=== PATIENT | female | born 1935 | race Caucasian/White ===

== ENCOUNTER 2019-04-12 19:10 | Observation (INO) | payer MEDICARE, SELFPAY ==
[2019-04-12] VITALS (9 sets, daily range): BP systolic 98–156; BP diastolic 50–108; PULSE 60–120; RESP 12–20; TEMP 36.4–36.7; O2SAT 96–98; BMI 31.8
--- NOTE | ~2019-04-12 | XR_ITS ---
EXAMINATION: XR chest 2V EXAM DATE: 04/12/2019 19:58 INDICATION: Weakness, heart palpitations. TECHNIQUE: Frontal and lateral projections of the chest obtained and reviewed. Comparison is made to prior examination from 04/08/2019. FINDINGS: Mild left basilar atelectasis unchanged. The lungs are otherwise clear. There are no pleu ral effusions. The cardiomediastinal silhouette is within normal limits. There is no pneumothorax s uspected. There are bony degenerative changes. IMPRESSION: Mild left basilar atelectasis unchanged. Reviewed, dictated and finalized at location A. ERCIAL PORTFOLIO MANAGER
--- NOTE | 2019-04-12 19:15 | ED.ARRPALP ---
HPI - Arrhythmia/Palpitations General Chief Complaint: Arrhythmia/Palpitations Stated Complaint: palpitations Time Seen by Provider: 04/12/19 19:15 Source: patient Mode of arrival: ambulatory Limitations: no limitations History of Present Illness HPI narrative: An 83 y/o female presents to the ED with c/o heart palpitations that began 30 minutes ago. Pt was seen in the ED on Wednesday (4 days ago) for the same complaints and had a negative Troponin and inverted T-waves on EKG. Dr. Morales scheduled the pt for a cardiac catheterization on 04/13/19 and recommended the pt start taking ASA 81 mg as well as stop taking her Xarelto and Sotalog medication. Pt's last dose of Xarelto was taken on Wednesday (2 days ago). Pt notes that she had one episode of A-fib around this time last year and her current symptoms feel similar. She reports generalized weakness, but denies CP, chest pressure, SOB, lightheadedness, dizziness, and N/V. Onset (ago): minute(s) (30) Arrhythmia history: atrial fibrillation Associated symptoms: other (generalized weakness) Related Data Home Medications Medication Instructions Recorded Confirmed levothyroxine 112 mcg tablet 112 mcg PO DAILY 03/09/19 04/12/19 lisinopril 2.5 mg tablet 2.5 mg PO DAILY 03/09/19 04/12/19 pioglitazone 15 mg tablet 15 mg PO DAILY 03/09/19 04/12/19 risedronate 150 mg tablet 150 mg PO MONTHLY 03/09/19 04/12/19 sotalol 80 mg tablet 80 mg PO BID 03/09/19 04/12/19 rivaroxaban [Xarelto] 20 mg PO DAILY 04/08/19 04/12/19 atorvastatin 40 mg PO DAILY 04/12/19 04/12/19 calcium citrate-vitamin D3 1 tablet PO BID 04/12/19 04/12/19 omega [id number]-fish oil [Ultra 1 cap PO BID 04/12/19 04/12/19 [place]-3] sotalol 80 mg PO BID 04/12/19 04/12/19 Allergies Allergy/AdvReac Type Severity Reaction Status Date / Time niacin Allergy Severe RASH Verified 04/12/19 19:54 Review of Systems Review of Systems: All systems reviewed & are unremarkable except as noted in HPI and below Constitutional: Constitutional: Reports weakness (generalized) Comments: Denies: lightheadedness, dizziness Cardiovascular: Cardiovascular: Denies chest pain Comments: Reports: heart palpitations; Denies: chest pressure Respiratory: Respiratory: Denies dyspnea Gastrointestinal: Gastrointestinal: Denies nausea and Denies vomiting PMFSH Past Medical History Medical History A-fib BMI 31.0-31.9,adult DM type 2 (diabetes mellitus, type 2) Encounter for routine adult health examination without abnormal findings Hx of deep venous thrombosis Hyperlipidemia Hypothyroidism (acquired) 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 Bashir Exam Narrative: Exam Narrative: GENERAL: Well-appearing, well-nourished, and in no acute distress. HEAD: Normocephalic, atraumatic. ENT: Mucous membranes moist. CHEST: Clear to auscultation. No respiratory distress. HEART: Tachycardic and irregularly irregular. Normal peripheral pulses. ABDOMEN: Soft, nontender, nondistended. EXTREMITIES: Normal range of motion. No edema. NEURO: Clear speech, no facial droop. Alert and oriented x3. PSYCH: Normal mood and affect. Course Consultations Consultation #1: Discussed case with Dr. Farris and recommends oral Metoprolol, no anti-coagulation, and NPO at midnight. Date: 04/12/19 Time: 20:37 Vital Signs Vital signs: Vital Signs Temperature 98.1 F 04/12/19 19:14 Pulse Rate 115 H 04/12/19 19:14 Respiratory Rate 19 04/12/19 19:14 Blood Pressure 156/104 H 04/12/19 19:14 Pulse Oximetry 98 04/12/19 19:14 Temperature 98.1 F 04/12/19 19:14 P
--- NOTE | 2019-04-12 19:33 | ECG_ITS ---
Measurements Intervals [place] Rate: 127 P: HI: 0 QRS: -1 QRSD: 98 T: 143 QT: 314 QTc: 457 Interpretive Statements ATRIAL FLUTTER/TACHYCARDIA WITH RAPID VENTRICULAR RESPONSE BORDERLINE R WAVE PROGRESSION, ANTERIOR LEADS ST-T WAVE ABNORMALITY IN LATERAL LEADS- CONSIDER ISCHEMIA BASELINE ARTIFACT- I, II, III, AVR, AVL, AVF, V4 ABNORMAL ECG Electronically Signed On 04-12-2019 20:20:18 STOREROOM KEEPER by Jorge Lees D.O.
[2019-04-12 19:55] LABS: Basophils Absolute Auto 0.1 K/mm3 (0.0-0.1); Basophils Percent Auto 0.7 % (0.2-1.2); Eosinophils Absolute Auto 0.1 K/mm3 (0-0.3); Eosinophils Percent Auto 1.8 % (0-4.4); Hemoglobin 13.8 g/dL (12.0-15.0); Immature Granulocyte Absolute 0.03 K/mm3 (0.00-0.031); Immature Granulocyte Percent A 0.4 % (0-0.5); Lymphocytes Absolute Auto 2.44 K/mm3 (0.9-3.2); Lymphocytes Percent Auto 31.8 % (18.3-44.2); Mean Corpuscular HGB Conc 33.7 g/dl (32-36); Mean Corpuscular Volume 92.1 fl (80-100); Mean Platelet Volume 10.7 fl (7.4-10.4); Monocytes Absolute Auto 0.8 K/mm3 (0.1-0.6); Monocytes Percent Auto 10.2 % (2.6-8.5); Neutrophils Absolute Auto 4.2 K/mm3 (1.3-6.7); Neutrophils Percent Auto 55.1 % (45.5-73.1); Platelet Count Result 291 k/mm3 (150-375); Red Blood Count 4.45 M/mm3 (4.2-5.4); Red Cell Distribution Width 14.9 % (11.5-14.5); White Blood Count 7.7 K/mm3 (4.5-10.0)
[2019-04-12 20:05] LABS: INR 0.9; Prothrombin Time 11.9 Seconds (11.1-14.7)
[2019-04-12 20:06] LABS: Partial Thromboplastin Time 26.3 SECONDS (22.3-36.8)
[2019-04-12 20:07] LABS: Blood Urea Nitrogen 16 mg/dL (7-17); Calcium 9.6 mg/dL (8.4-10.2); Carbon Dioxide 25 mmol/L (22-30); Chloride 97 mmol/L (98-107); Estimated CRCL calculation 66 ml/min; Estimated Glomerular Filt Rate > 60; Glucose 147 mg/dL (65-105); Potassium 3.8 mmol/L (3.4-5.0); Sodium 135 mmol/L (137-145)
[2019-04-12 20:19] LABS: Troponin I 0.013 ng/mL (0.000-0.034)
[2019-04-12] MEDS: SODIUM CHLORIDE 0.9% IV 500 ML 999 ML IV CONT (20:27)
[2019-04-12] MEDS: METOPROLOL TARTRATE 50 MG TAB 25 MG PO (20:50)
--- NOTE | 2019-04-12 21:58 | ADMGEN ---
This patient, Teresita Velasco, was admitted to IMU Room 206-01. Patient/family oriented to hospital policies and general routines including ID bracelet, bed and alarms, visiting hours, pain management, procedures, bathroom and other care routines, personal items, smoking policy, room service/diet, and visiting hours. Valuables list has been completed. Information on how to activate the Rapid Response Team has been discussed. Patient/Family are encouraged to report perceived risks to care and to ask questions if they do not understand what they are told or what they should do.
[2019-04-13] VITALS (10 sets, daily range): BP systolic 123–136; BP diastolic 61–78; PULSE 65–99; RESP 16–18; TEMP 36.2–37.2; O2SAT 95–98
--- NOTE | 2019-04-13 | EST_ITS ---
Patient Info Name: Teresita Velasco Age: 83 years : 1935 Gender: Female Ht: 63 in Wt: 175 lbs BSA: 1.91 m2 HR: 73 bpm BP: 144 / 85 mmHg Heart Rhythm: Sinus Rhythm Technical Quality: Excellent Exam Date: 04/13/2019 12:59 PM Exam Location: [facility] Stress Admit Date: 04/13/2019 Staff Attending Provider: keial monique md Referring Physician: YOLY Chavira; Exercise Technologist: Lisa Hidalgo RDCS Exercise Physician: Keila Monique MD Exam Type: CA stress gabriela w NM Study Info Indications R94.31 - Abnormal electrocardiogram ECG EKG R07.9 - Chest pain, unspecified A regadenoson stress test was performed. Summary 1. Resting EKG: Normal sinus rhythm with inferolateral and anterior T-wave inversion consistent with ischemia. 2. Stress EKG: Sinus tachycardia, nondiagnostic ST depression in V5 and V6 of less than 1 mm. 3. Occasional PVCs. 4. Symptoms of dyspnea and presyncope were reversed with aminophylline 50 mg IV push at the completion of the protocol. 5. Nuclear test results to follow. Protocol: Lexiscan Stress ECG Details Stage: REST Duration (min): 1 min : 27 sec HR (bpm): 73 SBP (mmHg): 144 DBP (mmHg): 85 Stage: REST Duration (min): 11 min : 23 sec HR (bpm): 77 SBP (mmHg): 144 DBP (mmHg): 85 Stage: STAGE 1 Duration (min): 1 min : 0 sec HR (bpm): 107 SBP (mmHg): 156 DBP (mmHg): 100 Stage: RECOVERY Duration (min): 1 min : 0 sec HR (bpm): 132 SBP (mmHg): 137 DBP (mmHg): 96 Stage: RECOVERY Duration (min): 2 min : 0 sec HR (bpm): 113 SBP (mmHg): 164 DBP (mmHg): 97 Stage: RECOVERY Duration (min): 3 min : 0 sec HR (bpm): 102 SBP (mmHg): 162 DBP (mmHg): 90 Stage: RECOVERY Duration (min): 4 min : 0 sec HR (bpm): 94 SBP (mmHg): 162 DBP (mmHg): 90 Stage: RECOVERY Duration (min): 4 min : 46 sec HR (bpm): 89 SBP (mmHg): 145 DBP (mmHg): 86 Rest HR: 77 bpm Peak HR: 134 bpm Rest Sys BP: 144 mmHg Peak Sys BP: 164 mmHg Max Pred HR: 137 bpm % Max Pred HR: 98 % Target HR: 116 bpm Max RPP: 21,976 bpm*mmHg BP Response: Normal blood pressure response Termination Reason: Completed protocol Cardiac Symptoms: Dyspnea, Shortness of breath, Lightheaded/pre-syncope Total Time: 1 min : 0 sec Rest [place]ral BP: 85 mmHg Peak [place] BP: 97 mmHg Total Dose: 0.4 mg Resting ECG Resting EKG: Normal sinus rhythm with inferolateral and anterior T-wave inversion consistent with ischemia. Stress ECG Stress EKG: Sinus tachycardia, nondiagnostic ST depression in V5 and V6 of less than 1 mm. Arrhythmias Occasional PVCs. Report Signatures
--- NOTE | 2019-04-13 00:21 | ECG_ITS ---
Measurements Intervals [place] Rate: 69 P: 50 SD: 168 QRS: 17 QRSD: 87 T: 161 QT: 470 QTc: 505 Interpretive Statements SINUS RHYTHM LOW QRS VOLTAGE IN LIMB LEADS BORDERLINE R WAVE PROGRESSION, ANTERIOR LEADS ST-T WAVE ABNORMALITY IN ANTEROLAT/LAT LEADS- CONSIDER ISCHEMIA ABNORMAL ECG Electronically Signed On 04-13-2019 7:54:02 BASTING MARKER by Jorge Lees D.O.
[2019-04-13] MEDS: ENOXAPARIN 80 MG/0.8 ML SYRINGE SUB-Q (14:09)
[2019-04-13] MEDS: METOPROLOL TARTRATE 25 MG TABLET PO (14:10)
[2019-04-13 15:27] LABS: Troponin I 0.015 ng/mL (0.000-0.034)
--- NOTE | 2019-04-20 14:10 | PM.DS ---
DS: Diagnosis Admitting Diagnosis Admitting Diagnosis: Palpitations Chest discomfort Discharge Diagnosis (1) Atrial fibrillation with rapid ventricular response: Code(s): I48.91 - Unspecified atrial fibrillation Status: Acute Assessment and Plan: One prior episode of AFib in April 2018. Admitted with AFib RVR after being off sotalol for 2 days (for prolonged QTc). Back in NSR (2) Acute coronary syndrome: Code(s): I24.9 - Acute ischemic heart disease, unspecified Status: Acute Assessment and Plan: Recent onset of severe exertional intolerance, associated with marked ischemic appearing EKG changes involving the anterolateral leads suggestive of an Left anterior descending or left main stenosis. Cardiac catheterization recommended which was set up to be done as an outpatient. Cardiac catheterization denied by the insurance company. Admitted with palpitations and chest discomfort 04/12/2019 Peer to peer review with her insurance company done by Dr Morales and still denied. Lexiscan done which was negative for ischemia. Echocardiogram scheduled to be done in the office and follow up with Dr Morales on April 25. (3) Unstable angina: Code(s): I20.0 - Unstable angina Status: Acute Assessment and Plan: As above (4) QT prolongation: Code(s): R94.31 - Abnormal electrocardiogram [ECG] [EKG] Status: Acute Assessment and Plan: She developed new QT prolongation which she has not had in the past even on sotalol. The addition of ischemia suspected as the cause of the QT prolongation. Hopefully once the ischemia resolved Sotalol can be resumed (5) Ventricular arrhythmia: Code(s): I49.9 - Cardiac arrhythmia, unspecified Status: Acute Assessment and Plan: History of ventricular arrhythmias, quiescent on sotalol DS: Summary Hospital Course Reason for hospitalization: Date of admission: 04/12/2019 Palpitations Chest discomfort Hospital Course: Please note date of discharge is 04/13/2019 83-year-old female with recent onset of severe exertional intolerance associated with marked ischemic appearing EKG changes involving the anterior lateral leads suggestive of a left anterior descending or left main stenosis that was scheduled for outpatient cardiac catheterization on April 13, 2019. Due to a long QTc her sotalol was discontinued. This most likely is the reason she went into atrial fibrillation. She had palpitations and chest discomfort and presented to the emergency room on 04/12/2019. The cardiac catheterization was denied by her insurance company. Dr Morales did a peer to peer with and again the cardiac catheterization was denied. Lexiscan stress test was performed. Resting EKG revealed normal sinus rhythm with inferior lateral and anterior T-wave inversion consistent with ischemia. Stress EKG revealed sinus tachycardia with nondiagnostic ST depression in V5 and V6 of less than 1 mm. Occasional PVCs. The nuclear portion was reported as negative for ischemia or infarct. Ejection fraction measured greater than 70% with no wall motion abnormality. As she converted back to normal sinus rhythm, troponins were negative, she was discharged home in stable and pain-free condition. She was scheduled to have an echocardiogram in the office on 04/21/2019 with a follow-up visit with Dr Morales on April 26. Status at Discharge Functional status at discharge: uses cane/walker Time Spent with Patient Time attestation: Total time spent providing and/or coordinating discharge services: Greater than 30 minutes to orders and discharge summary Exam Narrative: Exam Narrative: Const: General: cooperative, healthy appearing, comfortable and no acute distress Orientation/consciousness: patient oriente
== END 2019-04-13 18:00 | disposition home or self-care (01) ==
LOC: ANHED 20:54 → ANHIMU 21:07
PROVIDERS: Internal Medicine Cardiovascular Disease; Admitting Provider Internal Medicine Cardiovascular Disease; Emergency Provider Emergency Medicine; PCP Internal Medicine; Visit Provider Internal Medicine Cardiovascular Disease
DX: I48.91 Unspecified atrial fibrillation (principal); I20.0 Unstable angina; R94.31 Abnormal electrocardiogram [ECG] [EKG]; I49.9 Cardiac arrhythmia, unspecified; E11.9 Type 2 diabetes mellitus without complications; E78.5 Hyperlipidemia, unspecified; E03.9 Hypothyroidism, unspecified; E55.9 Vitamin D deficiency, unspecified; I83.90 Asymptomatic varicose veins of unspecified lower extremity; M81.0 Age-related osteoporosis without current pathological fracture; Z79.899 Other long term (current) drug therapy; Z86.718 Personal history of other venous thrombosis and embolism
CPT/HCPCS: 36415; 71046; 80048; 84484; 85025; 85610; 85730; 93005; 93017; 96361; 96372; 96374; 96376; 99285; A9270; G0378; J1650; J7040

== ENCOUNTER → 2019-04-13 10:00 | Day surgery (SDC) | payer MEDICARE, SELFPAY ==
[2019-04-12 14:36] VITALS: BMI 31.0
--- NOTE | ~2019-04-13 | NM_ITS ---
EXAMINATION: NM gabriela stress w perfusion DATE: 04/13/2019 14:02 INDICATION: Chest pain. Abnormal electrocardiogram. TECHNIQUE: Rest images were obtained following intravenous administration of 10 mCi Tc99m tetrofosmin (Myoview). The patient was infused intravenously with Lexiscan (regadenoson). Then, 29.9 mCi Tc99m t etrofosmin (Myoview) was administered intravenously, and stress images were obtained. Data was recons tructed into short axis and horizontal and vertical long axis SPECT images. Gated SPECT images were a lso obtained. COMPARISON: Chest CT 09/06/2017 FINDINGS: There is no definite reversible or fixed perfusion abnormality to suggest ischemia or infar ction. There is no segmental wall motion abnormality. Left ventricular ejection fraction measures > 70%. IMPRESSION: 1. No definite ischemia or infarct. 2. Normal left ventricular ejection fraction measuring >70%. Reviewed, dictated and finalized at location A. IOVASCULAR RN
--- NOTE | 2019-04-13 08:54 | WPDCN ---
Assessment and Plan Assessment and plan (1) Acute coronary syndrome: Code(s): I24.9 - Acute ischemic heart disease, unspecified Status: Acute Assessment and Plan: Patient has recent onset of severe exertional intolerance, associated with marked ischemic appearing EKG changes involving the anterolateral leads suggestive of an Left anterior descending or left main stenosis. She now has been admitted with chest discomfort. She had some AFib RVR last night, the 1st episode in a year, although this may have be related to my stopping her sotalol 2 days ago for her QT prolongation. I recommended a cardiac catheterization to the patient, to be done today, but this has been denied by the patient's insurance. I am currently attempting peer to peer review with her insurance company and have been on hold for greater than 40 minutes. (2) Unstable angina: Code(s): I20.0 - Unstable angina Status: Acute (3) Atrial fibrillation with rapid ventricular response: Code(s): I48.91 - Unspecified atrial fibrillation Status: Acute Assessment and Plan: One prior episode of AFib in April 2018. Admitted again with AFib RVR after being off sotalol for 2 days. Back in NSR now. (4) QT prolongation: Code(s): R94.31 - Abnormal electrocardiogram [ECG] [EKG] Status: Acute Assessment and Plan: The patient has developed new QT prolongation which she has not had in the past even on sotalol. I suspect the addition of ischemia has caused the QT prolongation. Hopefully once we get the ischemia resolved we can resume sotalol. (5) Ventricular arrhythmia: Code(s): I49.9 - Cardiac arrhythmia, unspecified Status: Acute Assessment and Plan: History of ventricular arrhythmias, quiescent on sotalol. HPI Data of Consult Date/Time: 04/13/19 08:54 Requesting Physician: Monica Morales MD Primary Care Provider: Harjeet Bashir MD Consult Narrative Narrative: Date of service: 04/13/2019 Teresita Velasco is a 83 year old female whom I have been asked to see regarding chest discomfort, ischemic EKG changes and a fib RVR. I have seen Mrs. Rambo Asencio for ventricular arrhythmias and 1 episode of atrial fibrillation in April 2018, treated with sotalol and Xarelto. I saw her on Wednesday and diagnosed acute coronary syndrome. She was taken off her Xarelto in anticipation of a cardiac cath today and I held her sotalol for her QT prolongation. Subsequently she has been admitted to through the ER with chest discomfort, new palpitations and a fib RVR rate 120's. She was given IV Cardizem and po metoprolol and converted to NSR. She stated that she felt miserable in her chest last night w/ severe weakness and racing heartbeats. No SOB or syncope. THe patient had been seen by DR. Wall in the past for ventricular arrhythmias and started on sotalol. She has never had any cardiomyopathy or CAD. She had one episode of atrial fib a year ago and was started on Xarelto. She started having severe exertional exhaustion Mar 24 when she and her went on a [employer] cruise. She found she could not walk far before having to sit and rest due to overall fatigue and exhaustion; which was new for her. She felt she could not walk another step. No palpitations at that time. She came to the ER last w/e and her EKG showed extensive new deep anterolateral T wave inversions consistent with ischemia, and discharged w/ office FU. I saw her Wednesday as above. Review of Systems Constitutional: Constitutional: Denies fatigue, Denies fever(s), Denies frequent falls and Denies lethargy Eyes: Eyes: Denies blurry vision ENT: Reports hearing normal Cardiovascular: Cardiovascular: Reports chest pain, Reports chest pain with activity, Denies syncope, Reports rapid heart rate, Denies pedal edema, Denies edema, Denies leg edema, Denies lightheadedness, Denies dyspnea, Denies dyspnea on exertion and
--- NOTE | 2019-04-20 12:10 | PM.DS ---
DS: Diagnosis Admitting Diagnosis Admitting Diagnosis: Palpitations Discharge Diagnosis (1) Atrial fibrillation with rapid ventricular response: Code(s): I48.91 - Unspecified atrial fibrillation Status: Acute Assessment and Plan: One prior episode of AFib in April 2018. Admitted with AFib RVR after being off sotalol for 2 days (for prolonged QTc). Back in NSR (2) Acute coronary syndrome: Code(s): I24.9 - Acute ischemic heart disease, unspecified Status: Acute Assessment and Plan: Recent onset of severe exertional intolerance, associated with marked ischemic appearing EKG changes involving the anterolateral leads suggestive of an Left anterior descending or left main stenosis. Cardiac catheterization recommended which was set up to be done as an outpatient.. Cardiac catheterization denied by the insurance company. Peer to peer review with her insurance company done by Dr Morales and still denied. Lexiscan done which was negative for ischemia. Echocardiogram scheduled to be done in the office and follow up with Dr Morales on April 25. (3) Unstable angina: Code(s): I20.0 - Unstable angina Status: Acute Assessment and Plan: As above (4) QT prolongation: Code(s): R94.31 - Abnormal electrocardiogram [ECG] [EKG] Status: Acute Assessment and Plan: She developed new QT prolongation which she has not had in the past even on sotalol. The addition of ischemia suspected as the cause of the QT prolongation. Hopefully once the ischemia resolved Sotalol can be resumed . (5) Ventricular arrhythmia: Code(s): I49.9 - Cardiac arrhythmia, unspecified Status: Acute Assessment and Plan: History of ventricular arrhythmias, quiescent on sotalol DS: Summary Hospital Course Reason for hospitalization: Palpitations Hospital Course: 83-year-old female with recent onset of severe exertional intolerance associated with marked ischemic appearing EKG changes involving the anterior lateral leads suggestive of a left anterior descending or left main stenosis that was scheduled for outpatient cardiac catheterization on April 13, 2019. Due to a long QTc her sotalol was discontinued. This most likely is the reason she went into atrial fibrillation. She had palpitations and chest discomfort and presented to the emergency room on 04/12/2019. The cardiac catheterization was denied by her insurance company. Dr Morales did a peer to peer with and again the cardiac catheterization was denied. Lexiscan stress test was performed. Resting EKG revealed normal sinus rhythm with inferior lateral and anterior T-wave inversion consistent with ischemia. Stress EKG revealed sinus tachycardia with nondiagnostic ST depression in V5 and V6 of less than 1 mm. Occasional PVCs. The nuclear portion was reported as negative for ischemia or infarct. Ejection fraction measured greater than 70% with no wall motion abnormality. As she converted back to normal sinus rhythm, troponins were negative, she was discharged home in stable and pain-free condition. She was scheduled to have an echocardiogram in the office on 04/21/2019 with a follow-up visit with Dr Morales on April 26. Status at Discharge Functional status at discharge: uses cane/walker Time Spent with Patient Time attestation: Total time spent providing and/or coordinating discharge services: 25 minutes Exam Const: General: cooperative, healthy appearing, comfortable and no acute distress Orientation/consciousness: patient oriented x3 HENMT: Head: normal to inspection and no cranial bruits Ears: external ears normal General nose exam: Normal external nose present Face and sinus: normal facial exam Mouth: Yes Normal oral and palatal mucosa present Eyes: General: a
== END | disposition home or self-care (01) ==
PROVIDERS: PCP Internal Medicine; Visit Provider Internal Medicine Cardiovascular Disease
PROC: 4A023N7 Measurement of Cardiac Sampling and Pressure, Left Heart, Percutaneous Approach (ICD-10-PCS; CPT 93452; principal; 2019-04-13 10:00)
DX: I24.9 Acute ischemic heart disease, unspecified (principal); I48.91 Unspecified atrial fibrillation; R07.89 Other chest pain; R94.31 Abnormal electrocardiogram [ECG] [EKG]; E11.9 Type 2 diabetes mellitus without complications; E78.5 Hyperlipidemia, unspecified; E03.9 Hypothyroidism, unspecified; E55.9 Vitamin D deficiency, unspecified; M81.0 Age-related osteoporosis without current pathological fracture; Z79.01 Long term (current) use of anticoagulants; Z86.718 Personal history of other venous thrombosis and embolism; Z79.82 Long term (current) use of aspirin; Z79.84 Long term (current) use of oral hypoglycemic drugs
CPT/HCPCS: 78452; 93017; A9270; A9502; J1650; J2785

== ENCOUNTER 2019-05-30 10:57 | Outpatient (CLI) | payer MEDICARE, SELFPAY ==
--- NOTE | ~2019-05-30 | US_ITS ---
EXAMINATION: US renal BI EXAM DATE: 05/30/2019 12:30 INDICATION: Type 2 diabetes. Hypertension. TECHNIQUE: Multiple grayscale and Doppler images of the kidneys were obtained (by a technologist who performed the scan) and subsequently reviewed. There is no prior study for comparison. FINDINGS: Right kidney: There is normal contour and echogenicity. It measures 10.6 x 4.4 x 5.4 centimeters. T here are no focal renal lesions identified. There is no hydronephrosis. Left kidney: There is normal contour and echogenicity. It measures 11.4 x 6.1 x 6.1 centimeters. The re is a 6 mm cyst. There is no hydronephrosis. Bladder unremarkable. IMPRESSION: 1. Sonographically unremarkable kidneys. Reviewed, dictated and finalized at location B. NDMAN
--- NOTE | ~2019-05-30 | US_ITS ---
EXAMINATION: US retroperitoneal duplex ltd DATE: 05/30/2019 12:30 INDICATION: Hypertension. Hypercholesterolemia. TECHNIQUE: Multiple grayscale, color Doppler, and pulsed Doppler images of the kidneys and renal yue rupert were obtained. COMPARISON: None. FINDINGS: The aorta peak systolic velocity is 62 cm/s. The right renal artery peak systolic velocity is 125 cm/ s in the proximal segment, 99 cm/s in the mid segment, and 189 cm/s in the distal segment. The left r enal artery peak systolic velocity is 127 cm/s in the proximal segment, 132 cm/s in the mid segment, and 140 cm/s in the distal segment. IMPRESSION: 1. Elevated distal right renal artery peak systolic velocities which are borderline criteria for >50 -60% stenosis. Reviewed, dictated and finalized at location A. LATION WORKER FURNACE INSTALLER IMPRESSION: 1. Elevated distal right renal artery peak systolic velocities which are borde dedrickine criteria for >50-60% stenosis.
== END 2019-05-30 10:58 | disposition home or self-care (01) ==
LOC: ANHIMG 11:02
PROVIDERS: PCP Internal Medicine; Visit Provider Internal Medicine
DX: R53.1 Weakness (principal); I48.91 Unspecified atrial fibrillation; E11.9 Type 2 diabetes mellitus without complications; R94.39 Abnormal result of other cardiovascular function study; I10 Essential (primary) hypertension
CPT/HCPCS: 76775; 93976

== ENCOUNTER 2019-06-05 09:24 | Outpatient (CLI) | payer MEDICARE, SELFPAY ==
--- NOTE | ~2019-06-05 | CT_ITS ---
EXAMINATION: CTA abdomen DATE: 06/05/2019 10:12 INDICATION: Hypertension. Right renal artery stenosis. TECHNIQUE: Computed tomographic angiography (CTA) of the abdomen was performed with 100 mL Omnipaque- 350 intravenous contrast. Automated exposure control and iterative reconstruction technique were empl oyed. The dose-length product was 447.49 mGy-cm. Maximum intensity projection 3D-reconstructions of t he aorta and other arteries were constructed by the technologist on a separate workstation. COMPARISON: CT abdomen and pelvis 09/06/2017, ultrasound 05/30/2019 FINDINGS: The visualized portions of the lung bases demonstrate mild atelectasis. No pleural effusion . The heart size is normal. There are coronary artery calcifications. No pericardial effusion. The li kian is normal. There are gallstones in the gallbladder, which is normal in size. There is a small sli ding hiatal hernia. The spleen, pancreas, and adrenal glands are normal. There is cortical thinning o f the kidneys. There are no dilated loops of bowel. There are no pathologically enlarged lymph nodes. There is no free intraperitoneal fluid. There is atherosclerosis of abdominal aorta, which is normal in caliber. There is mild stenosis of celiac axis. There is no significant stenosis of superior mese nteric artery, inferior mesenteric artery, or the renal arteries. There is lumbar dextroscoliosis and moderate spondylosis. IMPRESSION: 1. No significant renal artery stenosis. Reviewed, dictated and finalized at location A. TCHER TENDER
[2019-06-05 09:58] LABS: Estimated Glomerular Filt Rate > 60
== END 2019-06-05 09:25 | disposition home or self-care (01) ==
PROVIDERS: PCP Internal Medicine; Visit Provider Internal Medicine
DX: I70.1 Atherosclerosis of renal artery (principal); I10 Essential (primary) hypertension
CPT/HCPCS: 36415; 74175; Q9967

== ENCOUNTER 2019-06-21 08:30 | Outpatient (RCR) | payer MEDICARE, SELFPAY ==
--- NOTE | 2019-06-22 17:05 | PCCPR ---
Absent r/t coronavirus until further notice.
--- NOTE | 2019-06-28 09:25 | PCCPR ---
Program is temporarily suspended due to COVID outbreak.
--- NOTE | 2019-07-05 11:03 | PCCPR ---
Called patient in regards to the temporary closure of our department continuing until at least August 02. Patient is doing well and states she is riding her stationary bike 25-35 min most days. Encouraged her to get outside during the warmer days and do some walking if she felt safe to do so. She had no further questions. Will mail patient home based exercise guidelines to her home address. Will continue to follow weekly.
--- NOTE | 2019-07-12 09:59 | PCCPR ---
Called Triny today to check in, she states that she is healthy but has felt very weak lately, which she believes is due to medication. She states that she is using her recumbent bike at home every other day and monitoring her blood pressure. Hiral did receive the exercise guidelines in the mail.
--- NOTE | 2019-07-12 10:01 | PCCPR ---
Spoke with Amor on Wednesday and he stated that he did get the exercise guidelines in the mail and walking around his house.
--- NOTE | 2019-07-18 10:28 | PCCPR ---
Spoke with Triny states she has been feeling exhausted and lightheaded most of the time. States she had an apt with Dr Lupe banks 1 month and then followed up with a tele apt with Jean last week. Dr Morales decreased her metoprolol, and she continued to feel exhausted so she had a visit with Dr Pinedo yesterday, he ordered some blood work and did and EKG in the office, dc'd her lisinopril with htz for now. she is due to go back to him tomorrow. States her b/p can be very low with the diastolic in the 80's then she spikes to sytolic in 150's to 160's without change in activity. she wanted to ride her recumbant bike at home however has not felt like doing so. Explained for now it may be best to hold off while her MD's are adjusting her medication. Also let her know one of us will be calling her weekly to see how she is doing.
--- NOTE | 2019-07-26 13:26 | PCCPR ---
Weekly update call. Patient states they discontinued her lisinopril and she has been having less weakness. She states her BP has been more stable as well but she still doesnt feel the greatest. She is also wearing a monitor for 30 days. Will follow up with Triny next week.
--- NOTE | 2019-08-02 13:46 | PCCPR ---
Weekly update call-Left message informing patient of continued closure through the month of August due to the extension of the longterm in place order.
--- NOTE | 2019-08-17 12:50 | PCCPR ---
Starting Bi-Weekly Calls. Spoke with patient. She is wearing a heart monitor currently. Is almost finished with the 30 days. No questions or concerns at this time.
--- NOTE | 2019-08-31 13:34 | PCCPR ---
Spoke with Triny on the phone, checking in. She continues to ride her stationary bike at home. Also continues to experience light headedness due to labile BP. Triny wore heart monitor for two weeks, but did not show significant dysrhythmias.
--- NOTE | 2019-09-12 13:28 | PCCPR ---
Message left for Triny requesting she give us a call back to discuss our new guidelines and her plan to return. Also let her know we do now have and official restart date of October.
== END 2019-06-21 23:59 | disposition home or self-care (01) ==
LOC: ANHCPREHAB 08:30
PROVIDERS: PCP Internal Medicine; Visit Provider Internal Medicine Cardiovascular Disease
DX: Z95.5 Presence of coronary angioplasty implant and graft (principal)
CPT/HCPCS: 93798

== ENCOUNTER 2019-07-17 13:57 | Outpatient (CLI) | payer MEDICARE, SELFPAY ==
[2019-07-17 14:14] LABS: Basophils Absolute Auto 0.1 K/mm3 (0.0-0.1); Basophils Percent Auto 0.6 % (0.2-1.2); Eosinophils Absolute Auto 0.1 K/mm3 (0-0.3); Hematocrit 40.9 % (37.0-47.0); Hemoglobin 13.7 g/dL (12.0-15.0); Immature Granulocyte Absolute 0.04 K/mm3 (0.00-0.031); Immature Granulocyte Percent A 0.4 % (0-0.5); Lymphocytes Absolute Auto 2.42 K/mm3 (0.9-3.2); Lymphocytes Percent Auto 24.7 % (18.3-44.2); Mean Corpuscular HGB Conc 33.5 g/dl (32-36); Mean Corpuscular Hemoglobin 30.4 pg (26-34); Mean Corpuscular Volume 90.9 fl (80-100); Monocytes Percent Auto 10.6 % (2.6-8.5); Neutrophils Absolute Auto 6.1 K/mm3 (1.3-6.7); Neutrophils Percent Auto 62.7 % (45.5-73.1); Platelet Count Result 395 k/mm3 (150-375); Red Cell Distribution Width 14.7 % (11.5-14.5); White Blood Count 9.8 K/mm3 (4.5-10.0)
[2019-07-17 14:25] LABS: Blood Urea Nitrogen 18 mg/dL (7-17); Calcium 9.3 mg/dL (8.4-10.2); Carbon Dioxide 28 mmol/L (22-30); Chloride 94 mmol/L (98-107); Estimated Glomerular Filt Rate > 60; Glucose 123 mg/dL (65-105); Potassium 3.6 mmol/L (3.4-5.0); Sodium 131 mmol/L (137-145)
== END 2019-07-17 13:58 | disposition home or self-care (01) ==
PROVIDERS: PCP Internal Medicine; Visit Provider Internal Medicine
DX: Z79.899 Other long term (current) drug therapy (principal)
CPT/HCPCS: 36415; 80048; 85025

== ENCOUNTER 2019-07-19 13:55 | Outpatient (CLI) | payer MEDICARE, SELFPAY ==
[2019-07-19 15:06] LABS: Thyroid Stimulating Hormone 0.108 uIU/mL (0.465-4.680)
== END 2019-07-19 13:56 | disposition home or self-care (01) ==
LOC: ANHLAB 13:58
PROVIDERS: PCP Internal Medicine; Visit Provider Internal Medicine Cardiovascular Disease
DX: I48.0 Paroxysmal atrial fibrillation (principal); R09.89 Other specified symptoms and signs involving the circulatory and respiratory systems; R55 Syncope and collapse
CPT/HCPCS: 36415; 82384; 84443

== ENCOUNTER 2019-07-21 09:24 | Outpatient (CLI) | payer MEDICARE, SELFPAY ==
[2019-07-24 12:55] LABS: Metanephrine, Total Urine 289 mcg/24 h (224-832); Metanephrine, Urine 96 mcg/24 h (90-315); Normetanephrine, Urine 193 mcg/24 h (122-676)
== END 2019-07-21 09:25 | disposition home or self-care (01) ==
PROVIDERS: PCP Internal Medicine; Visit Provider Internal Medicine Cardiovascular Disease
DX: I48.0 Paroxysmal atrial fibrillation (principal); R55 Syncope and collapse; R09.89 Other specified symptoms and signs involving the circulatory and respiratory systems
CPT/HCPCS: 83835

== ENCOUNTER 2019-08-25 09:11 | Outpatient (CLI) | payer MEDICARE, SELFPAY ==
[2019-08-25 09:42] LABS: Hemoglobin A1C 6.4 % (<5.7)
[2019-08-25 09:48] LABS: Alanine Aminotransferase 26 U/L (4-35); Albumin Level 4.2 g/dL (3.5-5.1); Alkaline Phosphatase 101 U/L (38-126); Aspartate Amino Transferase 35 U/L (14-36); Bilirubin,Total 0.6 mg/dL (0.2-1.3); Blood Urea Nitrogen 13 mg/dL (7-17); Calcium 9.3 mg/dL (8.4-10.2); Carbon Dioxide 26 mmol/L (22-30); Chloride 96 mmol/L (98-107); Cholesterol 138 mg/dL (0-200); Estimated Glomerular Filt Rate > 60; Glucose 138 mg/dL (65-105); HDL Direct 57 mg/dL; Potassium 3.7 mmol/L (3.4-5.0); Sodium 130 mmol/L (137-145); Triglycerides 129 mg/dL (<150)
[2019-08-25 09:59] LABS: LDL Cholesterol Direct 51 mg/dL
[2019-08-25 10:21] LABS: Free T4 Free Thyroxine 2.12 ng/mL (0.78-2.19)
[2019-08-29 13:51] LABS: Vitamin D 1,25 (OH)2 Total 44 pg/mL (18-72); Vitamin D2 1,25 (OH)2 13 pg/mL; Vitamin D3 1,25 (OH)2 31 pg/mL
== END 2019-08-25 09:12 | disposition home or self-care (01) ==
LOC: ANHLAB 09:15
PROVIDERS: PCP Internal Medicine; Visit Provider Internal Medicine
DX: E03.9 Hypothyroidism, unspecified (principal); E55.9 Vitamin D deficiency, unspecified; E78.5 Hyperlipidemia, unspecified; E11.9 Type 2 diabetes mellitus without complications; Z79.899 Other long term (current) drug therapy
CPT/HCPCS: 36415; 80048; 80061; 80076; 82652; 83036; 84439; 84443

== ENCOUNTER 2019-10-27 09:02 | Outpatient (CLI) | payer MEDICARE, SELFPAY ==
[2019-10-27 10:10] LABS: Free T4 Free Thyroxine 1.63 ng/mL (0.78-2.19)
== END 2019-10-27 09:03 | disposition home or self-care (01) ==
PROVIDERS: PCP Internal Medicine; Visit Provider Internal Medicine
DX: E03.9 Hypothyroidism, unspecified (principal); Z79.899 Other long term (current) drug therapy
CPT/HCPCS: 36415; 84439; 84443

== ENCOUNTER 2019-11-08 08:22 | Outpatient (CLI) | payer MEDICARE, SELFPAY ==
--- NOTE | ~2019-11-08 | MM_ITS ---
EXAMINATION: MM screening tyler BI w shaina HISTORY: Screening TECHNIQUE: Craniocaudal and mediolateral oblique 3-D tomosynthesis images were obtained and synthetic 2-D images were generated. CAD analysis was submitted and interpreted. COMPARISON: Comparison to multiple prior studies sequentially, with oldest reviewed study dated 05/18. BREAST PARENCHYMAL COMPOSITION: There are scattered areas of fibroglandular density. FINDINGS: There is no evidence of suspicious mass, calcification, or architectural distortion to sugg est malignancy in either breast. There has been no suspicious interval change. IMPRESSION: 1. No mammographic evidence of malignancy. 2. Recommend routine screening mammography in one year. BI-RADS Category 1: Negative Reviewed, dictated and finalized at location A.
== END 2019-11-08 08:23 | disposition home or self-care (01) ==
PROVIDERS: PCP Internal Medicine; Visit Provider Obstetrics & Gynecology
DX: Z12.31 Encounter for screening mammogram for malignant neoplasm of breast (principal)
CPT/HCPCS: 77063; 77067

== ENCOUNTER 2020-03-13 07:30 | Outpatient (CLI) | payer MEDICARE, SELFPAY ==
[2020-03-13 08:08] LABS: Hemoglobin A1C 5.7 % (<5.7)
[2020-03-13 08:09] LABS: Anion Gap 4 mmol/L (8-16); Blood Urea Nitrogen 13 mg/dL (7-17); Calcium 9.3 mg/dL (8.4-10.2); Carbon Dioxide 30 mmol/L (22-30); Chloride 98 mmol/L (98-107); Cholesterol 145 mg/dL (0-200); Estimated Glomerular Filt Rate > 60; Glucose 122 mg/dL (65-105); HDL Direct 66 mg/dL; Potassium 3.9 mmol/L (3.4-5.0); Sodium 132 mmol/L (137-145); Triglycerides 105 mg/dL (<150)
[2020-03-13 08:19] LABS: LDL Cholesterol Direct 48 mg/dL
[2020-03-13 09:43] LABS: Free T4 Free Thyroxine 1.69 ng/mL (0.78-2.19)
== END 2020-03-13 07:31 | disposition home or self-care (01) ==
PROVIDERS: PCP Internal Medicine; Visit Provider Internal Medicine
DX: E03.9 Hypothyroidism, unspecified (principal); E11.9 Type 2 diabetes mellitus without complications; E78.2 Mixed hyperlipidemia; Z51.81 Encounter for therapeutic drug level monitoring; Z79.899 Other long term (current) drug therapy
CPT/HCPCS: 36415; 80048; 80061; 83036; 84439; 84443

== ENCOUNTER 2020-04-03 11:35 | Outpatient (CLI) | payer MEDICARE, SELFPAY ==
[2020-04-03 12:03] LABS: Basophils Absolute Auto 0.1 K/mm3 (0.0-0.1); Basophils Percent Auto 0.5 % (0.2-1.2); Eosinophils Absolute Auto 0.1 K/mm3 (0-0.3); Hematocrit 35.6 % (37.0-47.0); Hemoglobin 11.8 g/dL (12.0-15.0); Immature Granulocyte Absolute 0.04 K/mm3 (0.00-0.031); Immature Granulocyte Percent A 0.4 % (0-0.5); Lymphocytes Absolute Auto 2.76 K/mm3 (0.9-3.2); Lymphocytes Percent Auto 29.7 % (18.3-44.2); Mean Corpuscular HGB Conc 33.1 g/dl (32-36); Mean Corpuscular Hemoglobin 28.2 pg (26-34); Mean Platelet Volume 9.8 fl (7.4-10.4); Monocytes Percent Auto 10.5 % (2.6-8.5); Neutrophils Absolute Auto 5.4 K/mm3 (1.3-6.7); Neutrophils Percent Auto 57.9 % (45.5-73.1); Platelet Count Result 414 k/mm3 (150-375); Red Blood Count 4.19 M/mm3 (4.2-5.4); Red Cell Distribution Width 14.5 % (11.5-14.5); White Blood Count 9.3 K/mm3 (4.5-10.0)
[2020-04-03 12:15] LABS: Anion Gap 9 mmol/L (8-16); Blood Urea Nitrogen 17 mg/dL (7-17); Calcium 9.3 mg/dL (8.4-10.2); Carbon Dioxide 27 mmol/L (22-30); Chloride 97 mmol/L (98-107); Estimated Glomerular Filt Rate > 60; Glucose 113 mg/dL (65-105); Sodium 133 mmol/L (137-145)
== END 2020-04-03 11:36 | disposition home or self-care (01) ==
LOC: ANHLAB 11:37
PROVIDERS: PCP Internal Medicine; Visit Provider Internal Medicine Cardiovascular Disease
DX: I48.0 Paroxysmal atrial fibrillation (principal); Z51.81 Encounter for therapeutic drug level monitoring; Z79.02 Long term (current) use of antithrombotics/antiplatelets
CPT/HCPCS: 36415; 80048; 85025

== ENCOUNTER 2020-07-25 07:59 | Outpatient (CLI) | payer MEDICARE, SELFPAY ==
[2020-07-25 08:39] LABS: Basophils Percent Auto 0.5 % (0.2-1.2); Eosinophils Absolute Auto 0.1 K/mm3 (0-0.3); Eosinophils Percent Auto 1.1 % (0-4.4); Hematocrit 34.2 % (37.0-47.0); Hemoglobin 10.7 g/dL (12.0-15.0); Immature Granulocyte Absolute 0.03 K/mm3 (0.00-0.031); Immature Granulocyte Percent A 0.4 % (0-0.5); Lymphocytes Percent Auto 33.9 % (18.3-44.2); Mean Corpuscular HGB Conc 31.3 g/dl (32-36); Mean Corpuscular Hemoglobin 24.7 pg (26-34); Mean Platelet Volume 10.1 fl (7.4-10.4); Monocytes Absolute Auto 0.8 K/mm3 (0.1-0.6); Neutrophils Absolute Auto 3.9 K/mm3 (1.3-6.7); Neutrophils Percent Auto 53.1 % (45.5-73.1); Platelet Count Result 411 k/mm3 (150-375); Red Blood Count 4.33 M/mm3 (4.2-5.4); Red Cell Distribution Width 17.5 % (11.5-14.5)
[2020-07-25 09:06] LABS: Anion Gap 7 mmol/L (8-16); Blood Urea Nitrogen 14 mg/dL (7-17); Calcium 9.2 mg/dL (8.4-10.2); Carbon Dioxide 29 mmol/L (22-30); Chloride 97 mmol/L (98-107); Cholesterol 151 mg/dL (0-200); Estimated Glomerular Filt Rate 60; Glucose 124 mg/dL (65-105); HDL Direct 70 mg/dL; Potassium 4.1 mmol/L (3.4-5.0); Sodium 133 mmol/L (137-145); Triglycerides 110 mg/dL (<150)
[2020-07-25 09:18] LABS: LDL Cholesterol Direct 53 mg/dL
[2020-07-25 09:36] LABS: Thyroid Stimulating Hormone 0.345 uIU/mL (0.465-4.680)
[2020-07-25 09:45] LABS: Free T4 Free Thyroxine 1.62 ng/mL (0.78-2.19)
[2020-07-26 11:14] LABS: Iron 45 ug/dL (37-170)
[2020-07-26 11:23] LABS: Percent Iron Saturation 11 % (20-50)
[2020-07-26 11:50] LABS: Ferritin 7.42 ng/mL (11.1-264)
== END 2020-07-25 08:00 | disposition home or self-care (01) ==
LOC: ANHLAB 07-26 10:54
PROVIDERS: PCP Internal Medicine; Visit Provider Internal Medicine
DX: E03.9 Hypothyroidism, unspecified (principal); E55.9 Vitamin D deficiency, unspecified; E78.2 Mixed hyperlipidemia; E11.9 Type 2 diabetes mellitus without complications; Z79.899 Other long term (current) drug therapy; R79.89 Other specified abnormal findings of blood chemistry
CPT/HCPCS: 36415; 80048; 80061; 82728; 83036; 83540; 83550; 84439; 84443; 85025

== ENCOUNTER → 2020-08-12 02:30 | Outpatient (CLI) | payer MEDICARE, SELFPAY ==
[2020-08-12 19:19] LABS: SARS-CoV-2 RNA PCR Negative
== END ==
PROVIDERS: PCP Internal Medicine; Visit Provider Internal Medicine Gastroenterology
DX: Z01.812 Encounter for preprocedural laboratory examination (principal); Z20.822 Contact with and (suspected) exposure to COVID-19
CPT/HCPCS: C9803; U0003; U0005

== ENCOUNTER 2020-08-15 00:20 | Day surgery (SDC) | payer MEDICARE, SELFPAY ==
[2020-08-02 15:19] VITALS: BMI 29.7
[2020-08-15 08:24] VITALS: BP 133/73; PULSE 70; RESP 18; TEMP 36.1; O2SAT 97; BMI 28.9
--- NOTE | 2020-08-15 08:34 | WPDANESEPPF ---
Anes - Initial Pre Proc Eval Procedure: Operation Date: 08/15/20 09:30 Proposed Procedures p Esophagogastroduodenoscopy & Colonoscopy - Sami Barney MD Date/Time: 08/15/20 08:34 Surgeon: Sami Barney MD Pre Op Diagnosis: iron def anemia Patient Data Age: 84 Gender: F Height: 5 ft 3 in Weight: 74.1 kg Last Vital Signs Temp 36.1 C L 08/15/20 08:24 Pulse 70 08/15/20 08:24 Resp 18 08/15/20 08:24 BP 133/73 08/15/20 08:24 Pulse Ox 97 08/15/20 08:24 Allergies Allergy/AdvReac Type Severity Reaction Status Date / Time niacin Allergy Severe RASH Verified 08/15/20 08:24 Home Medications Medication Instructions Recorded Confirmed Type Calcium 600 + D(3) 1 cap PO BID 04/12/19 08/02/20 History omega 9-xpm-kzc-fish oil [Ultra 1 cap PO BID 04/12/19 08/02/20 History [place]-3] Xarelto 20 mg PO DAILY #30 tablet 04/13/19 08/02/20 Rx nitroglycerin [Nitrostat] 0.4 mg SUBLINGUAL DIRECTED PRN 04/21/19 08/02/20 Rx #25 tablet lorazepam 0.5 mg tablet 0.25 - 0.5 mg PO TID PRN #30 tablet 05/02/19 08/02/20 Rx sitagliptin 50 mg tablet 50 mg PO DAILY #90 tablet 10/19/19 08/02/20 Rx blood-glucose meter #1 each 10/20/19 07/30/20 Rx lancets #100 each 10/20/19 07/30/20 Rx blood sugar diagnostic #100 each 10/23/19 07/30/20 Rx levothyroxine 100 mcg tablet See Rx Instructions .ROUTE 11/27/19 08/02/20 Rx .COMPLEX #90 tablet lisinopril 10 0.5 tablet PO DAILY #90 tablet 02/12/20 08/02/20 Rx mg-hydrochlorothiazide 12.5 mg tablet atorvastatin 40 mg tablet See Rx Instructions .ROUTE 02/21/20 08/02/20 Rx .COMPLEX #90 tablet metoprolol tartrate 25 mg tablet 37.5 mg PO Q12HR tablet 07/30/20 08/02/20 History sotalol 120 mg tablet 120 mg PO Q12H 07/30/20 08/02/20 History sodium,potassium,mag sulfates 17.5 See Rx Instructions PO .COMPLEX 08/01/20 Rx gram-3.13 gram-1.6 gram oral soln #354 ml Patient hx anesthesia problems: none Family hx anesthesia problems: none PMFSH Past Medical History Medical History A-fib Two episodes of AFib on Xarelto Anxiety ASHD (arteriosclerotic heart disease) BMI 28.0-28.9,adult BMI 29.0-29.9,adult BMI 31.0-31.9,adult Chest fullness DM type 2 (diabetes mellitus, type 2) RAZA (dyspnea on exertion) Encounter for Medicare annual wellness exam Encounter for routine adult health examination without abnormal findings Fatigue Follow up Hx of deep venous thrombosis 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 On Xarelto Hyperlipidemia Hypersomnolence Hypothyroidism (acquired) Low hemoglobin and low hematocrit Nausea On manager terminal drug therapy Orthostatic hypotension Osteoporosis Pedal edema Varicosities of leg Ventricular arrhythmia Vitamin D deficiency Weakness Surgical History Surgical History H/O local excision of skin lesion Nose and lower extremity History of hip surgery rt hip History of total knee arthroplasty lt Hx of cardiac catheterization with 1 stent placed Family History Family History Mother Hypertension Gout Father Cerebrovascular accident Heart attack Diabetes mellitus Sibling Diabetes mellitus COPD (chronic obstructive pulmonary disease) Social History Social History Social History: Lives w/ her . Son is Dr. Rambo Asencio. She has 3 children which include 2 daughters and son. 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 Her is durable power mergers and acquisitions attorney for healthcare. She desires to be a full code Smoking packs per day: 0 Smoking cigarettes per day: 0.0 Years smoked: 0 Smoking pack-years: 0.00 Smoking status: Never smoker Second hand tobacco smoke exposure: No Alcohol intake: current Drinks per week: 4 Substance use: never Substance use type: does not use Living arrangements:
[2020-08-15 08:44] LABS: Glucose Point of Care 151 (65-105)
[2020-08-15] MEDS: LACTATED RINGERS 1,000 ML 150 ML IV CONT (08:44)
--- NOTE | 2020-08-15 09:03 | WPDGICN ---
Assessment and Plan Assessment and plan (1) AGUILAR (iron deficiency anemia): Code(s): D50.9 - Iron deficiency anemia, unspecified Status: Acute Assessment and Plan: Patient with progressive anemia found to be iron deficient. Plan is for GI endoscopy to assess more thoroughly. Plan to rule out GI source contributing to anemia. No obvious GI bleeding has been described. Xarelto will be held for several days prior to endoscopy. Further recommendations will be given after endoscopy. (2) A-fib: Qualifiers: Atrial fibrillation type: unspecified Qualified Code(s): I48.91 - Unspecified atrial fibrillation Code(s): I48.91 - Unspecified atrial fibrillation Status: Chronic GI Consult Note Consult date/time: 08/15/20 09:03 HPI: Teresita Asencio is a 84 year old female Seen in evaluation at the request of Dr. Bashir. patient has noticed decline in hemoglobin. Now found to be iron deficient anemia. Patient denies any obvious signs of GI blood loss. She states her weight appetite bowel movements are normal. She does have a past history of atrial fibrillation for which she is on Xarelto anticoagulation. Patient presents today for GI endoscopy to assess for possible GI blood loss contributing to anemia. 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 On Xarelto Hyperlipidemia Hypersomnolence Hypothyroidism (acquired) Low hemoglobin and low hematocrit Nausea On snf drug therapy Orthostatic hypotension Osteoporosis Pedal edema Varicosities of leg Ventricular arrhythmia Vitamin D deficiency Weakness Surgical History Surgical History H/O local excision of skin lesion Nose and lower extremity History of hip surgery rt hip History of total knee arthroplasty lt Hx of cardiac catheterization with 1 stent placed Family History Family History Mother Hypertension Gout Father Cerebrovascular accident Heart attack Diabetes mellitus Sibling Diabetes mellitus COPD (chronic obstructive pulmonary disease) Social History Social History Social History: Lives w/ her . Son is Dr. Rambo Asencio. She has 3 children which include 2 daughters and son. 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 She desires to be a full code Smoking packs per day: 0 Smoking cigarettes per day: 0.0 Years smoked: 0 Smoking pack-years: 0.00 Smoking status: Never smoker Second hand tobacco smoke exposure: No Alcohol intake: current Drinks per week: 4 Substance use: never Substance use type: does not use Living arrangements: with family Gender identity (if verbalized by the patient): Female Sexual Orientation (if Verbalized by the Patient): Straight or Heterosexual Spiritual care concerns: No Agree to blood products: Yes Meds Home Medications and Allergies Home Medications Medication Instructions Recorded Confirmed Type Calcium 600 + D(3) 1 cap PO BID 04/12/19 08/02/20 History omega 5-lnl-ewj-fish oil [Ultra 1 cap PO BID 04/12/19 08/15/20 History [place]-3] Xarelto 20 mg PO DAILY #30 tablet 04/13/19 08/15/20 Rx nitroglycerin [Nitrostat] 0.4 mg
[2020-08-15] MEDS: BENZOCAINE (*SP) 60 ML SPRAY CAN (HURRICAINE) 1 SPRAY MUCOUS MEM (09:12)
[2020-08-15 09:58] VITALS: BP 113/64; PULSE 52; RESP 18; O2SAT 97
--- NOTE | 2020-08-15 10:00 | SUR.OPER ---
EGD START 916, END 919 COLONOSCOPY START 924, END 953
[2020-08-15 10:08] VITALS: BP 111/64; PULSE 55; RESP 18; O2SAT 97
[2020-08-15 10:16] VITALS: BP 114/61; PULSE 53; RESP 18; O2SAT 98
== END 2020-08-15 10:32 | disposition home or self-care (01) ==
PROVIDERS: PCP Internal Medicine; Visit Provider Internal Medicine Gastroenterology
PROC: 0DJ08ZZ Inspection of Upper Intestinal Tract, Via Natural or Artificial Opening Endoscopic (ICD-10-PCS; CPT 43235; principal; 2020-08-15 09:30)
DX: D50.9 Iron deficiency anemia, unspecified (principal); D12.2 Benign neoplasm of ascending colon; D12.4 Benign neoplasm of descending colon; D12.8 Benign neoplasm of rectum; K57.30 Diverticulosis of large intestine without perforation or abscess without bleeding; Q39.4 Esophageal web; K44.9 Diaphragmatic hernia without obstruction or gangrene; I48.91 Unspecified atrial fibrillation; I25.10 Atherosclerotic heart disease of native coronary artery without angina pectoris; E11.9 Type 2 diabetes mellitus without complications; E78.5 Hyperlipidemia, unspecified; E03.9 Hypothyroidism, unspecified; M81.0 Age-related osteoporosis without current pathological fracture; E55.9 Vitamin D deficiency, unspecified; Z86.718 Personal history of other venous thrombosis and embolism; Z79.01 Long term (current) use of anticoagulants; Z79.84 Long term (current) use of oral hypoglycemic drugs
CPT/HCPCS: 45381; 45385; 43450; 43235; 82948; 88305; C9803; J2704; J7120; U0003; U0005

== ENCOUNTER 2020-11-27 07:55 | Outpatient (CLI) | payer MEDICARE, SELFPAY ==
[2020-11-27 08:27] LABS: Basophils Absolute Auto 0.1 K/mm3 (0.0-0.1); Basophils Percent Auto 0.7 % (0.2-1.2); Eosinophils Absolute Auto 0.1 K/mm3 (0-0.3); Eosinophils Percent Auto 0.7 % (0-4.4); Hematocrit 36.6 % (37.0-47.0); Hemoglobin 11.6 g/dL (12.0-15.0); Immature Granulocyte Absolute 0.03 K/mm3 (0.00-0.031); Immature Granulocyte Percent A 0.4 % (0-0.5); Lymphocytes Percent Auto 33.9 % (18.3-44.2); Mean Corpuscular HGB Conc 31.7 g/dl (32-36); Mean Corpuscular Hemoglobin 25.3 pg (26-34); Mean Corpuscular Volume 79.7 fl (80-100); Mean Platelet Volume 9.8 fl (7.4-10.4); Monocytes Absolute Auto 0.8 K/mm3 (0.1-0.6); Monocytes Percent Auto 9.8 % (2.6-8.5); Neutrophils Absolute Auto 4.2 K/mm3 (1.3-6.7); Neutrophils Percent Auto 54.5 % (45.5-73.1); Platelet Count Result 359 k/mm3 (150-375); Red Blood Count 4.59 M/mm3 (4.2-5.4); Red Cell Distribution Width 19.6 % (11.5-14.5); White Blood Count 7.7 K/mm3 (4.5-10.0)
[2020-11-27 08:38] LABS: Iron 45 ug/dL (37-170)
[2020-11-27 08:40] LABS: Alanine Aminotransferase 18 U/L (4-35); Albumin Level 4.2 g/dL (3.5-5.1); Alkaline Phosphatase 98 U/L (38-126); Anion Gap 7 mmol/L (8-16); Aspartate Amino Transferase 30 U/L (14-36); Bilirubin,Total 0.6 mg/dL (0.2-1.3); Blood Urea Nitrogen 12 mg/dL (7-17); Calcium 9.3 mg/dL (8.4-10.2); Carbon Dioxide 25 mmol/L (22-30); Chloride 97 mmol/L (98-107); Cholesterol 160 mg/dL (0-200); Estimated Glomerular Filt Rate > 60; Glucose 127 mg/dL (65-110); HDL Direct 71 mg/dL; Potassium 4.1 mmol/L (3.4-5.0); Sodium 129 mmol/L (137-145); Triglycerides 104 mg/dL (<150)
[2020-11-27 08:48] LABS: Percent Iron Saturation 12 % (20-50)
[2020-11-27 08:51] LABS: LDL Cholesterol Direct 60 mg/dL
[2020-11-27 08:56] LABS: Free T4 Free Thyroxine 1.68 ng/mL (0.78-2.19)
[2020-11-27 09:12] LABS: Thyroid Stimulating Hormone 0.699 uIU/mL (0.465-4.680)
[2020-11-27 09:16] LABS: Ferritin 9.81 ng/mL (11.1-264)
[2020-11-27 09:22] LABS: Hemoglobin A1C 6.1 % (<5.7)
[2020-12-01 04:14] LABS: Vitamin D 1,25 (OH)2 Total 40 pg/mL (18-72); Vitamin D2 1,25 (OH)2 <8 pg/mL; Vitamin D3 1,25 (OH)2 40 pg/mL
== END 2020-11-27 07:56 | disposition home or self-care (01) ==
LOC: ANHLAB 08:00
PROVIDERS: PCP Internal Medicine; Visit Provider Internal Medicine
DX: E55.9 Vitamin D deficiency, unspecified (principal); E11.9 Type 2 diabetes mellitus without complications; Z79.899 Other long term (current) drug therapy; E03.9 Hypothyroidism, unspecified; D64.9 Anemia, unspecified; E78.2 Mixed hyperlipidemia
CPT/HCPCS: 36415; 80053; 80061; 82652; 82728; 83036; 83540; 83550; 84439; 84443; 85025

== ENCOUNTER 2020-11-29 12:55 | Outpatient (CLI) | payer MEDICARE, SELFPAY ==
[2020-11-29 14:00] LABS: Sodium 128 mmol/L (137-145)
[2020-11-29 14:16] LABS: Add Urine Microscopic? YES; Appearance Urine Clear (Clear); Bacteria Urine Trace /hpf; Bilirubin Urine Negative (Negative); Blood Urine 3+ (Negative); Color Urine Yellow (Yellow); Glucose Urine UA Negative (Negative); Ketones Urine Negative (Negative); Leukocyte Esterase Ur 2+ LEU/UL (NEGATIVE); Mucus Urine Rare /lpf; Nitrate Urine Negative (Negative); Protein Urine Negative (Negative); RBC Urine >75 /hpf (0-2); Squamous Epithelial Cell Urine Rare /hpf (Few); Urobilinogen Urine Negative mg/dL (<2.0); WBC Urine 31-50 /hpf (0-3)
[2020-12-02 00:37] LABS: Osmolality, Urine 363 mOsm/kg (50-1200)
== END 2020-11-29 12:56 | disposition home or self-care (01) ==
LOC: ANHLAB 12:58
PROVIDERS: PCP Internal Medicine; Visit Provider Internal Medicine
DX: E87.1 Hypo-osmolality and hyponatremia (principal)
CPT/HCPCS: 36415; 81001; 83930; 83935; 84295

== ENCOUNTER 2020-12-18 09:30 | Outpatient (CLI) | payer MEDICARE, SELFPAY ==
[2020-12-18 10:25] LABS: Anion Gap 10 mmol/L (8-16); Blood Urea Nitrogen 11 mg/dL (7-17); Calcium 9.1 mg/dL (8.4-10.2); Carbon Dioxide 24 mmol/L (22-30); Chloride 98 mmol/L (98-107); Estimated Glomerular Filt Rate > 60; Glucose 145 mg/dL (65-110); Potassium 4.1 mmol/L (3.4-5.0); Sodium 132 mmol/L (137-145)
== END 2020-12-18 09:31 | disposition home or self-care (01) ==
PROVIDERS: PCP Internal Medicine; Visit Provider Internal Medicine
DX: E87.1 Hypo-osmolality and hyponatremia (principal); R31.29 Other microscopic hematuria
CPT/HCPCS: 36415; 80048

== ENCOUNTER 2021-02-20 01:26 | Day surgery (SDC) | payer MEDICARE, SELFPAY ==
[2021-02-10 12:03] VITALS: BMI 29.7
--- NOTE | 2021-02-20 09:24 | WPDGICN ---
Assessment and Plan Assessment and plan (1) History of colon polyps: Code(s): Z86.010 - Personal history of colonic polyps Status: Acute Assessment and Plan: Patient has a history of large colon polyp in the ascending colon. Follow-up colonoscopy suggest this time to ensure that is completely excised. further recommendations will be given after endoscopy. (2) AGUILAR (iron deficiency anemia): Code(s): D50.9 - Iron deficiency anemia, unspecified Status: Acute Assessment and Plan: Iron replacement encourage. Iron deficiency likely on the basis of slow blood loss with colon polyps while on anticoagulation. Now status post polypectomy. (3) A-fib: Qualifiers: Atrial fibrillation type: unspecified Qualified Code(s): I48.91 - Unspecified atrial fibrillation Code(s): I48.91 - Unspecified atrial fibrillation Status: Chronic Assessment and Plan: Xarelto anticoagulation will need to be held briefly during colonoscopy. GI Consult Note Consult date/time: 02/20/21 09:24 HPI: Teresita Asencio is a 85 year old female Presents for follow-up colonoscopy. Patient has a history of iron deficiency while taking Xarelto for atrial fibrillation. GI endoscopy 6 months ago revealed a very large sessile polyp in the ascending colon. This was removed piecemeal fashion. Because of the large size and concern over portions that remain she presents today for follow-up surveillance colonoscopy. Patient reports a tendency to constipation. She denies abdominal pain. She has had no blood in her stools. Family history noncontributory. 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 On Xarelto Hyperlipidemia Hypersomnolence Hyponatremia Hypothyroidism (acquired) Low hemoglobin and low hematocrit Microscopic hematuria Nausea On jail drug therapy Orthostatic hypotension Osteoporosis Pedal edema Varicosities of leg Ventricular arrhythmia Vitamin D deficiency Weakness Surgical History Surgical History H/O local excision of skin lesion Nose and lower extremity History of hip surgery rt hip History of total knee arthroplasty lt Hx of cardiac catheterization with 1 stent placed Family History Family History Mother Hypertension Gout Father Cerebrovascular accident Heart attack Diabetes mellitus Sibling Diabetes mellitus COPD (chronic obstructive pulmonary disease) Social History Social History Social History: Lives w/ her . Son is Dr. Rambo Asencio. She has 3 children which include 2 daughters and son. 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 She desires to be a full code Smoking packs per day: 0 Smoking cigarettes per day: 0.0 Years smoked: 0 Smoking pack-years: 0.00 Smoking status: Never smoker Second hand tobacco smoke exposure: No Alcohol intake: current Drinks per week: 4 Alcohol use details: WINE Substance use: never Substance use type: does not use Living arrangements: with family Gender identity (if verbalized by the patient): Female Sexual Orientation (if Verbalized by the Patient): Straight or Heterose
[2021-02-20 09:26] VITALS: BP 152/99; PULSE 66; RESP 20; TEMP 36.8; O2SAT 98
[2021-02-20] MEDS: LACTATED RINGERS 1,000 ML 150 ML IV CONT (09:39)
--- NOTE | 2021-02-20 09:43 | WPDANESEPPF ---
Anes - Initial Pre Proc Eval Procedure: Operation Date: 02/20/21 10:00 Proposed Procedures p Screening Colonoscopy - Sami Barney MD Date/Time: 02/20/21 09:43 Surgeon: Sami Barney MD Pre Op Diagnosis: hx of colon polyps Patient Data Age: 85 Gender: F Height: 1.6 m Weight: 75.8 kg Last Vital Signs Temp 36.8 C 02/20/21 09:26 Pulse 66 02/20/21 09:26 Resp 20 02/20/21 09:26 BP 152/99 H 02/20/21 09:26 Pulse Ox 98 02/20/21 09:26 Allergies Allergy/AdvReac Type Severity Reaction Status Date / Time niacin Allergy Severe Redness of Verified 02/20/21 09:25 Skin Home Medications Medication Instructions Recorded Confirmed Type Calcium 600 + D(3) 1 cap PO DAILY 04/12/19 02/20/21 History omega 6-ann-qqn-fish oil [Ultra 1 cap PO DAILY 04/12/19 02/20/21 History [place]-3] Xarelto 20 mg PO DAILY #30 tablet 04/13/19 02/20/21 Rx lorazepam 0.5 mg tablet 0.25 - 0.5 mg PO TID PRN #30 tablet 05/02/19 02/20/21 Rx blood-glucose meter #1 each 10/20/19 02/20/21 Rx lancets #100 each 10/20/19 02/20/21 Rx blood sugar diagnostic #100 each 10/23/19 02/20/21 Rx metoprolol tartrate 25 mg tablet 37.5 mg PO QAM tablet 07/30/20 02/20/21 History sotalol 120 mg tablet 120 mg PO Q12H 07/30/20 02/20/21 History sodium,potassium,mag sulfates 17.5 See Rx Instructions PO .COMPLEX 08/01/20 02/20/21 Rx gram-3.13 gram-1.6 gram oral soln #354 ml ferrous sulfate 325 mg (65 mg 325 mg PO BID #180 tablet 11/29/20 02/20/21 Rx iron) tablet lisinopril 10 mg tablet 10 mg PO DAILY #90 tablet 12/02/20 02/20/21 Rx sodium,potassium,mag sulfates 17.5 See Rx Instructions PO .COMPLEX 01/27/21 02/20/21 Rx gram-3.13 gram-1.6 gram oral soln #354 ml atorvastatin 40 mg PO DAILY 02/10/21 02/20/21 History levothyroxine [Synthroid] 100 mcg PO DAILY 02/10/21 02/20/21 History metoprolol tartrate 25 mg PO QPM 02/10/21 02/20/21 History sitagliptin [Januvia] 50 mg PO DAILY 02/10/21 02/20/21 History Patient hx anesthesia problems: none Family hx anesthesia problems: none Results Review: All pre-operative results and documents have been reviewed as part of the pre-operative evaluation. 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 On Xarelto Hyperlipidemia Hypersomnolence Hyponatremia Hypothyroidism (acquired) Low hemoglobin and low hematocrit Microscopic hematuria Nausea On elastic cutter drug therapy Orthostatic hypotension Osteoporosis Pedal edema Varicosities of leg Ventricular arrhythmia Vitamin D deficiency Weakness Surgical History Surgical History H/O local excision of skin lesion Nose and lower extremity History of hip surgery rt hip History of total knee arthroplasty lt Hx of cardiac catheterization with 1 stent placed Family History Family History Mother Hypertension Gout Father Cerebrovascular accident Heart attack Diabetes mellitus Sibling Diabetes mellitus COPD (chronic obstructive pulmonary disease) Social History Social History Social History: Lives w/ her . Son is Dr. Rambo Asencio. She has 3 children which include 2 daughters and son. 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 She desires to be a full code Smoking packs per day: 0 Smoking cigarettes per day: 0.0 Years smoked: 0 Smoking pack-
[2021-02-20 09:46] LABS: Glucose Point of Care 127 mg/dl (65-105)
[2021-02-20 10:19] VITALS: BP 116/61; PULSE 49; RESP 20; O2SAT 99
[2021-02-20 10:29] VITALS: BP 116/63; PULSE 50; RESP 20; O2SAT 94
[2021-02-20 10:39] VITALS: BP 118/62; PULSE 52; RESP 20; O2SAT 95
== END 2021-02-20 10:50 | disposition home or self-care (01) ==
PROVIDERS: PCP Internal Medicine; Visit Provider Internal Medicine Gastroenterology
PROC: 0DJD8ZZ Inspection of Lower Intestinal Tract, Via Natural or Artificial Opening Endoscopic (ICD-10-PCS; CPT 45378; principal; 2021-02-20 10:00)
DX: Z12.11 Encounter for screening for malignant neoplasm of colon (principal); K63.5 Polyp of colon; E03.9 Hypothyroidism, unspecified; I48.91 Unspecified atrial fibrillation; M19.90 Unspecified osteoarthritis, unspecified site; E11.9 Type 2 diabetes mellitus without complications; E78.5 Hyperlipidemia, unspecified; G47.10 Hypersomnia, unspecified; E87.1 Hypo-osmolality and hyponatremia; M81.0 Age-related osteoporosis without current pathological fracture; I95.1 Orthostatic hypotension; E55.9 Vitamin D deficiency, unspecified; D50.9 Iron deficiency anemia, unspecified; Z79.01 Long term (current) use of anticoagulants
CPT/HCPCS: 45385; 82948; 88305; J2704; J7120

== ENCOUNTER 2021-04-23 08:05 | Outpatient (CLI) | payer MEDICARE, SELFPAY ==
[2021-04-23 08:40] LABS: Basophils Absolute Auto 0.1 K/mm3 (0.0-0.1); Basophils Percent Auto 0.7 % (0.2-1.2); Eosinophils Absolute Auto 0.1 K/mm3 (0-0.3); Hematocrit 43.9 % (37.0-47.0); Hemoglobin 14.8 g/dL (12.0-15.0); Immature Granulocyte Absolute 0.04 K/mm3 (0.00-0.031); Immature Granulocyte Percent A 0.6 % (0-0.5); Lymphocytes Percent Auto 31.3 % (18.3-44.2); Mean Corpuscular HGB Conc 33.7 g/dl (32-36); Mean Corpuscular Hemoglobin 31.5 pg (26-34); Mean Corpuscular Volume 93.4 fl (80-100); Mean Platelet Volume 9.9 fl (7.4-10.4); Monocytes Absolute Auto 0.7 K/mm3 (0.1-0.6); Neutrophils Percent Auto 56.4 % (45.5-73.1); Platelet Count Result 296 k/mm3 (150-375); Red Cell Distribution Width 14.7 % (11.5-14.5)
[2021-04-23 08:58] LABS: Alanine Aminotransferase 22 U/L (4-35); Albumin Level 4.2 g/dL (3.5-5.1); Alkaline Phosphatase 92 U/L (38-126); Anion Gap 7 mmol/L (8-16); Aspartate Amino Transferase 31 U/L (14-36); Bilirubin,Total 0.8 mg/dL (0.2-1.3); Blood Urea Nitrogen 13 mg/dL (7-17); Calcium 9.3 mg/dL (8.4-10.2); Carbon Dioxide 28 mmol/L (22-30); Chloride 99 mmol/L (98-107); Estimated Glomerular Filt Rate 60; Glucose 133 mg/dL (65-110); Potassium 4.6 mmol/L (3.4-5.0); Sodium 134 mmol/L (137-145)
[2021-04-23 09:01] LABS: Hemoglobin A1C 6.2 % (<5.7)
[2021-04-23 09:12] LABS: Iron 172 ug/dL (37-170)
[2021-04-23 09:21] LABS: Percent Iron Saturation 59 % (20-50)
[2021-04-23 09:49] LABS: Add Urine Microscopic? YES; Appearance Urine Clear (Clear); Bilirubin Urine Negative (Negative); Blood Urine 2+ (Negative); Color Urine Yellow (Yellow); Glucose Urine UA Negative (Negative); Hyaline Casts Urine 30-49 /lpf; Ketones Urine Negative (Negative); Leukocyte Esterase Ur Negative LEU/UL (Negative); Mucus Urine Rare /lpf; Nitrate Urine Negative (Negative); Protein Urine 2+ mg/dL (Negative); Specific Grav Ur 1.016 (1.001-1.035); Squamous Epithelial Cell Urine Rare /hpf (Few); Urobilinogen Urine Negative mg/dL (<2.0)
== END 2021-04-23 08:06 | disposition home or self-care (01) ==
PROVIDERS: PCP Internal Medicine; Visit Provider Internal Medicine
DX: D50.9 Iron deficiency anemia, unspecified (principal); R31.29 Other microscopic hematuria; E87.1 Hypo-osmolality and hyponatremia; Z79.899 Other long term (current) drug therapy
CPT/HCPCS: 36415; 80053; 81001; 82728; 83036; 83540; 83550; 85025

== ENCOUNTER 2021-09-10 08:13 | Outpatient (CLI) | payer MEDICARE, SELFPAY ==
[2021-09-10 08:43] LABS: Basophils Percent Auto 0.6 % (0.2-1.2); Eosinophils Absolute Auto 0.1 K/mm3 (0-0.3); Hematocrit 44.6 % (37.0-47.0); Hemoglobin 14.5 g/dL (12.0-15.0); Immature Granulocyte Absolute 0.03 K/mm3 (0.00-0.031); Immature Granulocyte Percent A 0.4 % (0-0.5); Lymphocytes Absolute Auto 2.56 K/mm3 (0.9-3.2); Lymphocytes Percent Auto 35.3 % (18.3-44.2); Mean Corpuscular HGB Conc 32.5 g/dl (32-36); Mean Corpuscular Hemoglobin 30.5 pg (26-34); Mean Corpuscular Volume 93.7 fl (80-100); Mean Platelet Volume 10.1 fl (7.4-10.4); Monocytes Absolute Auto 0.8 K/mm3 (0.1-0.6); Monocytes Percent Auto 10.5 % (2.6-8.5); Neutrophils Absolute Auto 3.8 K/mm3 (1.3-6.7); Neutrophils Percent Auto 52.2 % (45.5-73.1); Platelet Count Result 305 k/mm3 (150-375); Red Blood Count 4.76 M/mm3 (4.2-5.4); Red Cell Distribution Width 14.4 % (11.5-14.5); White Blood Count 7.3 K/mm3 (4.5-10.0)
[2021-09-10 09:06] LABS: Alanine Aminotransferase 19 U/L (6-35); Albumin Level 4.4 g/dL (3.5-5.1); Alkaline Phosphatase 88 U/L (38-126); Anion Gap 7 mmol/L (8-16); Aspartate Amino Transferase 28 U/L (14-36); Bilirubin,Total 0.6 mg/dL (0.2-1.3); Blood Urea Nitrogen 14 mg/dL (7-17); Calcium 8.8 mg/dL (8.4-10.2); Carbon Dioxide 27 mmol/L (22-30); Chloride 100 mmol/L (98-107); Cholesterol 159 mg/dL (0-200); Estimated Glomerular Filt Rate 60; Glucose 122 mg/dL (65-110); HDL Direct 69 mg/dL; Potassium 4.5 mmol/L (3.4-5.0); Sodium 134 mmol/L (137-145); Triglycerides 114 mg/dL (<150)
[2021-09-10 09:18] LABS: LDL Cholesterol Direct 58 mg/dL
[2021-09-10 09:44] LABS: Vitamin D 25 Hydroxy 36.9 ng/mL
== END 2021-09-10 08:14 | disposition home or self-care (01) ==
LOC: ANHLAB 08:14
PROVIDERS: PCP Internal Medicine; Visit Provider Internal Medicine
DX: Z51.81 Encounter for therapeutic drug level monitoring (principal); Z79.899 Other long term (current) drug therapy; E78.2 Mixed hyperlipidemia; E11.9 Type 2 diabetes mellitus without complications; E55.9 Vitamin D deficiency, unspecified
CPT/HCPCS: 36415; 80053; 80061; 82306; 83036; 85025

== ENCOUNTER 2021-12-16 10:31 | Outpatient (CLI) | payer MEDICARE, SELFPAY ==
--- NOTE | ~2021-12-16 | MM_ITS ---
EXAMINATION: MM screening tyler BI w shaina HISTORY: Screening mammogram TECHNIQUE: Craniocaudal and mediolateral oblique 3-D tomosynthesis images were obtained and synthetic 2-D images were generated. CAD analysis was submitted and interpreted. COMPARISON: 11/08/2019, 08/19/2018, 06/28/2017 bilateral screening mammogram examinations BREAST PARENCHYMAL COMPOSITION: There are scattered areas of fibroglandular density. FINDINGS: There is no evidence of suspicious mass, calcification, or architectural distortion to sugg est malignancy in either breast. There has been no suspicious interval change. IMPRESSION: 1. No mammographic evidence of malignancy. 2. Recommend routine screening mammography in one year. BI-RADS Category 1: Negative Reviewed, dictated and finalized at location A.
== END 2021-12-16 10:32 | disposition home or self-care (01) ==
PROVIDERS: PCP Internal Medicine; Visit Provider Obstetrics & Gynecology
DX: Z12.31 Encounter for screening mammogram for malignant neoplasm of breast (principal)
CPT/HCPCS: 77063; 77067

== ENCOUNTER 2022-01-12 08:35 | Outpatient (CLI) | payer MEDICARE, SELFPAY ==
[2022-01-12 08:57] LABS: Basophils Percent Auto 0.4 % (0.2-1.2); Eosinophils Absolute Auto 0.1 K/mm3 (0-0.3); Eosinophils Percent Auto 1.4 % (0-4.4); Hematocrit 44.1 % (37.0-47.0); Hemoglobin 14.6 g/dL (12.0-15.0); Immature Granulocyte Absolute 0.04 K/mm3 (0.00-0.031); Immature Granulocyte Percent A 0.6 % (0-0.5); Lymphocytes Absolute Auto 2.44 K/mm3 (0.9-3.2); Mean Corpuscular HGB Conc 33.1 g/dl (32-36); Mean Corpuscular Hemoglobin 31.2 pg (26-34); Mean Corpuscular Volume 94.2 fl (80-100); Mean Platelet Volume 9.9 fl (7.4-10.4); Monocytes Absolute Auto 0.7 K/mm3 (0.1-0.6); Monocytes Percent Auto 10.5 % (2.6-8.5); Neutrophils Absolute Auto 3.6 K/mm3 (1.3-6.7); Neutrophils Percent Auto 52.1 % (45.5-73.1); Platelet Count Result 289 k/mm3 (150-375); Red Blood Count 4.68 M/mm3 (4.2-5.4); Red Cell Distribution Width 14.3 % (11.5-14.5)
[2022-01-12 09:08] LABS: Hemoglobin A1C 6.2 % (<5.7)
[2022-01-12 09:09] LABS: Anion Gap 12 mmol/L (8-16); Blood Urea Nitrogen 11 mg/dL (7-17); Calcium 8.9 mg/dL (8.4-10.2); Carbon Dioxide 27 mmol/L (22-30); Chloride 97 mmol/L (98-107); Cholesterol 147 mg/dL (0-200); Estimated Glomerular Filt Rate > 60; Glucose 123 mg/dL (65-110); HDL Direct 59 mg/dL; Sodium 136 mmol/L (137-145); Triglycerides 93 mg/dL (<150)
[2022-01-12 09:20] LABS: LDL Cholesterol Direct 59 mg/dL
[2022-01-12 09:21] LABS: Creatinine Urine 192.9 mg/dL
[2022-01-12 09:26] LABS: MALB Creatinine Ratio 33.7 mg/g (0-30); Microalbumin Urine Random 65.1 mg/L (0-16.7)
[2022-01-12 09:29] LABS: Free T4 Free Thyroxine 1.64 ng/mL (0.78-2.19)
[2022-01-12 09:39] LABS: Thyroid Stimulating Hormone 0.999 uIU/mL (0.465-4.680)
== END 2022-01-12 08:36 | disposition home or self-care (01) ==
PROVIDERS: PCP Internal Medicine; Visit Provider Internal Medicine
DX: E78.2 Mixed hyperlipidemia (principal); I95.1 Orthostatic hypotension; Z51.81 Encounter for therapeutic drug level monitoring; Z79.899 Other long term (current) drug therapy; E03.9 Hypothyroidism, unspecified; E11.9 Type 2 diabetes mellitus without complications; F50.9 Eating disorder, unspecified
CPT/HCPCS: 36415; 80048; 80061; 82043; 83036; 84439; 84443; 85025

== ENCOUNTER 2022-04-21 11:02 | Outpatient (CLI) | payer MEDICARE, SELFPAY ==
[2022-04-21 12:10] LABS: Anion Gap 6 mmol/L (8-16); Blood Urea Nitrogen 14 mg/dL (7-17); Calcium 9.3 mg/dL (8.4-10.2); Carbon Dioxide 28 mmol/L (22-30); Chloride 100 mmol/L (98-107); Estimated Glomerular Filt Rate > 60; Glucose 113 mg/dL (65-110); Magnesium 1.8 mg/dL (1.6-2.3); Potassium 4.3 mmol/L (3.4-5.0); Sodium 134 mmol/L (137-145)
== END 2022-04-21 11:03 | disposition home or self-care (01) ==
PROVIDERS: PCP Internal Medicine; Visit Provider Internal Medicine
DX: R00.2 Palpitations (principal); I10 Essential (primary) hypertension
CPT/HCPCS: 36415; 80048; 83735

== ENCOUNTER 2022-06-11 08:27 | Outpatient (CLI) | payer MEDICARE, SELFPAY ==
[2022-06-11 08:57] LABS: Basophils Absolute Auto 0.1 K/mm3 (0.0-0.1); Basophils Percent Auto 0.7 % (0.2-1.2); Eosinophils Absolute Auto 0.1 K/mm3 (0-0.3); Eosinophils Percent Auto 0.8 % (0-4.4); Hematocrit 43.3 % (37.0-47.0); Hemoglobin 14.5 g/dL (12.0-15.0); Immature Granulocyte Absolute 0.03 K/mm3 (0.00-0.031); Immature Granulocyte Percent A 0.4 % (0-0.5); Lymphocytes Absolute Auto 2.59 K/mm3 (0.9-3.2); Lymphocytes Percent Auto 35.6 % (18.3-44.2); Mean Corpuscular HGB Conc 33.5 g/dl (32-36); Mean Corpuscular Hemoglobin 30.5 pg (26-34); Mean Corpuscular Volume 91.2 fl (80-100); Mean Platelet Volume 9.7 fl (7.4-10.4); Monocytes Absolute Auto 0.7 K/mm3 (0.1-0.6); Monocytes Percent Auto 9.3 % (2.6-8.5); Neutrophils Absolute Auto 3.9 K/mm3 (1.3-6.7); Neutrophils Percent Auto 53.2 % (45.5-73.1); Platelet Count Result 317 k/mm3 (150-375); Red Blood Count 4.75 M/mm3 (4.2-5.4); Red Cell Distribution Width 14.6 % (11.5-14.5); White Blood Count 7.3 K/mm3 (4.5-10.0)
[2022-06-11 09:14] LABS: Alanine Aminotransferase 24 U/L (6-35); Albumin Level 4.3 g/dL (3.5-5.1); Alkaline Phosphatase 88 U/L (38-126); Anion Gap 7 mmol/L (8-16); Aspartate Amino Transferase 31 U/L (14-36); Bilirubin,Total 0.7 mg/dL (0.2-1.3); Blood Urea Nitrogen 11 mg/dL (7-17); Carbon Dioxide 28 mmol/L (22-30); Chloride 100 mmol/L (98-107); Cholesterol 146 mg/dL (0-200); Estimated Glomerular Filt Rate > 60; Glucose 129 mg/dL (65-110); HDL Direct 56 mg/dL; Potassium 4.3 mmol/L (3.4-5.0); Sodium 135 mmol/L (137-145); Triglycerides 125 mg/dL (<150)
[2022-06-11 09:26] LABS: LDL Cholesterol Direct 54 mg/dL
[2022-06-11 09:40] LABS: Thyroid Stimulating Hormone 0.268 uIU/mL (0.465-4.680)
[2022-06-11 09:41] LABS: Free T4 Free Thyroxine 2.18 ng/mL (0.78-2.19); Vitamin D 25 Hydroxy 48.2 ng/mL
== END 2022-06-11 08:28 | disposition home or self-care (01) ==
LOC: ANHLAB 08:28
PROVIDERS: PCP Internal Medicine; Visit Provider Internal Medicine
DX: E11.9 Type 2 diabetes mellitus without complications (principal); I10 Essential (primary) hypertension; E03.9 Hypothyroidism, unspecified; E55.9 Vitamin D deficiency, unspecified; E78.2 Mixed hyperlipidemia
CPT/HCPCS: 36415; 80053; 80061; 82306; 83036; 84439; 84443; 85025

== ENCOUNTER 2022-07-23 08:04 | Outpatient (CLI) | payer MEDICARE, SELFPAY ==
[2022-07-23 09:05] LABS: Free T4 Free Thyroxine 1.86 ng/mL (0.78-2.19)
== END 2022-07-23 08:05 | disposition home or self-care (01) ==
LOC: ANHLAB 08:05
PROVIDERS: PCP Internal Medicine; Visit Provider Internal Medicine
DX: E03.9 Hypothyroidism, unspecified (principal); Z79.899 Other long term (current) drug therapy
CPT/HCPCS: 36415; 84439; 84443

== ENCOUNTER 2022-08-24 15:43 | Outpatient (CLI) | payer MEDICARE, SELFPAY ==
[2022-08-24 17:49] LABS: Free T4 Free Thyroxine 1.29 ng/mL (0.78-2.19)
== END 2022-08-24 15:44 | disposition home or self-care (01) ==
LOC: ANHLAB 15:44
PROVIDERS: PCP Internal Medicine; Visit Provider Internal Medicine
DX: E03.9 Hypothyroidism, unspecified (principal); Z79.899 Other long term (current) drug therapy
CPT/HCPCS: 36415; 84439; 84443

== ENCOUNTER 2022-10-29 07:29 | Outpatient (CLI) | payer MEDICARE, SELFPAY ==
[2022-10-29 08:02] LABS: Appearance Urine Clear (Clear); Bacteria Urine None Seen /hpf; Bilirubin Urine Negative (Negative); Blood Urine 2+ (Negative); Color Urine Yellow (Yellow); Glucose Urine UA Negative (Negative); Ketones Urine Trace mg/dL (Negative); Leukocyte Esterase Ur 1+ LEU/UL (Negative); Nitrate Urine Negative (Negative); Non Pathogenic Casts 0-2; Protein Urine Trace mg/dL (Negative); Squamous Epithelial Cell Urine Few /hpf (Few); pH Urine 5.5 (5.0-9.0)
[2022-10-29 08:09] LABS: Add Urine Microscopic? YES
[2022-10-29 08:09] LABS: Alanine Aminotransferase 24 U/L (6-35); Albumin Level 4.1 g/dL (3.5-5.1); Alkaline Phosphatase 69 U/L (38-126); Anion Gap 8 mmol/L (8-16); Aspartate Amino Transferase 30 U/L (14-36); Bilirubin,Total 0.6 mg/dL (0.2-1.3); Blood Urea Nitrogen 16 mg/dL (7-17); Calcium 8.9 mg/dL (8.4-10.2); Carbon Dioxide 28 mmol/L (22-30); Chloride 97 mmol/L (98-107); Cholesterol 155 mg/dL (0-200); Estimated Glomerular Filt Rate > 60; Glucose 118 mg/dL (65-110); HDL Direct 64 mg/dL; Potassium 4.6 mmol/L (3.4-5.0); Sodium 133 mmol/L (137-145); Triglycerides 98 mg/dL (<150)
[2022-10-29 08:20] LABS: LDL Cholesterol Direct 57 mg/dL
[2022-10-29 08:22] LABS: Basophils Absolute Auto 0.1 K/mm3 (0.0-0.1); Basophils Percent Auto 0.9 % (0.2-1.2); Eosinophils Absolute Auto 0.1 K/mm3 (0-0.3); Eosinophils Percent Auto 1.2 % (0-4.4); Hematocrit 43.3 % (37.0-47.0); Hemoglobin 14.2 g/dL (12.0-15.0); Immature Granulocyte Absolute 0.04 K/mm3 (0.00-0.031); Immature Granulocyte Percent A 0.5 % (0-0.5); Lymphocytes Absolute Auto 3.24 K/mm3 (0.9-3.2); Lymphocytes Percent Auto 40.4 % (18.3-44.2); Mean Corpuscular HGB Conc 32.8 g/dl (32-36); Mean Corpuscular Hemoglobin 30.5 pg (26-34); Mean Corpuscular Volume 93.1 fl (80-100); Mean Platelet Volume 10.4 fl (7.4-10.4); Monocytes Absolute Auto 0.8 K/mm3 (0.1-0.6); Monocytes Percent Auto 9.7 % (2.6-8.5); Neutrophils Absolute Auto 3.8 K/mm3 (1.3-6.7); Neutrophils Percent Auto 47.3 % (45.5-73.1); Platelet Count Result 286 k/mm3 (150-375); Red Blood Count 4.65 M/mm3 (4.2-5.4); Red Cell Distribution Width 14.7 % (11.5-14.5)
[2022-10-29 08:54] LABS: Hemoglobin A1C 6.1 % (<5.7)
[2022-10-29 09:02] LABS: Free T4 Free Thyroxine 1.64 ng/mL (0.78-2.19)
== END 2022-10-29 07:30 | disposition home or self-care (01) ==
PROVIDERS: PCP Internal Medicine; Visit Provider Internal Medicine
DX: I10 Essential (primary) hypertension (principal); E11.9 Type 2 diabetes mellitus without complications; E78.2 Mixed hyperlipidemia; E03.9 Hypothyroidism, unspecified; Z79.899 Other long term (current) drug therapy
CPT/HCPCS: 36415; 80053; 80061; 81001; 83036; 84439; 84443; 85025; 87086

== ENCOUNTER 2023-02-08 07:30 | Outpatient (CLI) | payer MEDICARE, SELFPAY ==
[2023-02-08 08:05] LABS: Alanine Aminotransferase 23 U/L (6-35); Albumin Level 4.4 g/dL (3.5-5.1); Alkaline Phosphatase 73 U/L (38-126); Anion Gap 6 mmol/L (8-16); Aspartate Amino Transferase 32 U/L (14-36); Bilirubin,Total 0.9 mg/dL (0.2-1.3); Blood Urea Nitrogen 10 mg/dL (7-17); Calcium 9.4 mg/dL (8.4-10.2); Carbon Dioxide 29 mmol/L (22-30); Chloride 99 mmol/L (98-107); Cholesterol 158 mg/dL (0-200); Estimated Glomerular Filt Rate > 60; Glucose 126 mg/dL (65-110); HDL Direct 69 mg/dL; Potassium 4.6 mmol/L (3.4-5.0); Sodium 134 mmol/L (137-145); Triglycerides 99 mg/dL (<150)
[2023-02-08 08:17] LABS: LDL Cholesterol Direct 61 mg/dL
[2023-02-08 08:25] LABS: Free T4 Free Thyroxine 1.89 ng/mL (0.78-2.19)
== END 2023-02-08 07:31 | disposition home or self-care (01) ==
LOC: ANHLAB 07:31
PROVIDERS: PCP Internal Medicine; Visit Provider Internal Medicine
DX: E03.9 Hypothyroidism, unspecified (principal); I10 Essential (primary) hypertension; I25.10 Atherosclerotic heart disease of native coronary artery without angina pectoris; I48.91 Unspecified atrial fibrillation; R53.1 Weakness; Z79.899 Other long term (current) drug therapy
CPT/HCPCS: 36415; 80053; 80061; 84439; 84443

== ENCOUNTER 2023-03-05 15:11 | Outpatient (CLI) | payer MEDICARE, SELFPAY ==
--- NOTE | ~2023-03-05 | MM_ITS ---
EXAMINATION: MM screening tyler BI w shaina HISTORY: Screening mammogram TECHNIQUE: Craniocaudal and mediolateral oblique 3-D tomosynthesis images were obtained and synthetic 2-D images were generated. CAD analysis was submitted and interpreted. COMPARISON: 12/16/2021, 11/08/2019 bilateral screening mammogram examinations BREAST PARENCHYMAL COMPOSITION: There are scattered areas of fibroglandular density. FINDINGS: There is no evidence of suspicious mass, calcification, or architectural distortion to sugg est malignancy in either breast. There has been no suspicious interval change. IMPRESSION: 1. No mammographic evidence of malignancy. 2. Recommend routine screening mammography in one year. BI-RADS Category 1: Negative Reviewed, dictated and finalized at location A. SME
== END 2023-03-05 15:12 | disposition home or self-care (01) ==
PROVIDERS: PCP Internal Medicine; Visit Provider Obstetrics & Gynecology
DX: Z12.31 Encounter for screening mammogram for malignant neoplasm of breast (principal)
CPT/HCPCS: 77063; 77067

== ENCOUNTER 2023-06-28 07:19 | Outpatient (CLI) | payer MEDICARE, SELFPAY ==
[2023-06-28 08:13] LABS: Hemoglobin A1C 6.2 % (<5.7)
[2023-06-28 08:17] LABS: Anion Gap 4 mmol/L (8-16); Blood Urea Nitrogen 12 mg/dL (7-17); Calcium 9.3 mg/dL (8.4-10.2); Carbon Dioxide 30 mmol/L (22-30); Chloride 100 mmol/L (98-107); Cholesterol 141 mg/dL (0-200); Estimated Glomerular Filt Rate > 60; Glucose 122 mg/dL (65-110); HDL Direct 64 mg/dL; Potassium 4.2 mmol/L (3.4-5.0); Sodium 134 mmol/L (137-145); Triglycerides 95 mg/dL (<150)
[2023-06-28 08:28] LABS: LDL Cholesterol Direct 60 mg/dL
[2023-06-28 08:51] LABS: Free T4 Free Thyroxine 1.42 ng/mL (0.78-2.19)
== END 2023-06-28 07:20 | disposition home or self-care (01) ==
PROVIDERS: PCP Internal Medicine; Visit Provider Internal Medicine
DX: E78.5 Hyperlipidemia, unspecified (principal); I10 Essential (primary) hypertension; E11.9 Type 2 diabetes mellitus without complications; E03.9 Hypothyroidism, unspecified
CPT/HCPCS: 36415; 80048; 80061; 83036; 84439; 84443

== ENCOUNTER 2023-11-10 06:54 | Outpatient (CLI) | payer MEDICARE, SELFPAY ==
[2023-11-10 07:46] LABS: Add Urine Microscopic? YES; Appearance Urine Clear (Clear); Bacteria Urine None Seen /hpf; Bilirubin Urine Negative (Negative); Blood Urine 2+ (Negative); Color Urine Yellow (Yellow); Glucose Urine UA Negative (Negative); Ketones Urine Negative (Negative); Leukocyte Esterase Ur Trace LEU/UL (Negative); Nitrate Urine Negative (Negative); Non Pathogenic Casts 0-2; Protein Urine Trace mg/dL (Negative); Specific Grav Ur 1.015 (1.001-1.035); Squamous Epithelial Cell Urine Occasional /hpf (Few); WBC Urine 0-5 /hpf (0-3); pH Urine 6.5 (5.0-9.0)
[2023-11-10 07:48] LABS: Anion Gap 11 mmol/L (4-12); Blood Urea Nitrogen 12 mg/dL (7-17); Calcium 8.9 mg/dL (8.4-10.2); Carbon Dioxide 23 mmol/L (22-30); Chloride 99 mmol/L (98-107); Cholesterol 152 mg/dL (0-200); Estimated Glomerular Filt Rate > 60; Glucose 117 mg/dL (65-110); HDL Direct 74 mg/dL; Potassium 4.2 mmol/L (3.4-5.0); Sodium 133 mmol/L (137-145); Triglycerides 98 mg/dL (<150)
[2023-11-10 07:59] LABS: LDL Cholesterol Direct 49 mg/dL
[2023-11-10 08:08] LABS: Hemoglobin A1C 6.2 % (<5.7)
[2023-11-10 08:21] LABS: Free T4 Free Thyroxine 1.32 ng/mL (0.78-2.19)
== END 2023-11-10 06:55 | disposition home or self-care (01) ==
LOC: ANHLAB 06:58
PROVIDERS: PCP Internal Medicine; Visit Provider Internal Medicine
DX: E78.5 Hyperlipidemia, unspecified (principal); E11.9 Type 2 diabetes mellitus without complications; E03.9 Hypothyroidism, unspecified; I10 Essential (primary) hypertension; Z79.899 Other long term (current) drug therapy
CPT/HCPCS: 36415; 80048; 80061; 81001; 83036; 84439; 84443

== ENCOUNTER 2023-12-13 07:28 | Outpatient (CLI) | payer MEDICARE, SELFPAY | END 2023-12-13 07:29 | disposition home or self-care (01) | PROVIDERS: PCP Internal Medicine; Visit Provider Internal Medicine | DX: E03.9 Hypothyroidism, unspecified (principal) | CPT/HCPCS: 36415; 84439; 84443 ==

== ENCOUNTER → 2024-01-06 04:57 | Day surgery (SDC) | payer MEDICARE, SELFPAY ==
[2024-01-06] VITALS (16 sets, daily range): BP systolic 90–181; BP diastolic 51–97; PULSE 47–54; RESP 12–20; TEMP 37.1; O2SAT 95–98; BMI 29.5
[2024-01-06 07:33] LABS: Basophils Absolute Auto 0.1 K/mm3 (0.0-0.1); Basophils Percent Auto 0.8 % (0.2-1.2); Eosinophils Absolute Auto 0.1 K/mm3 (0-0.3); Eosinophils Percent Auto 1.2 % (0-4.4); Hematocrit 45.5 % (37.0-47.0); Hemoglobin 15.4 g/dL (12.0-15.0); Immature Granulocyte Absolute 0.05 K/mm3 (0.00-0.031); Immature Granulocyte Percent A 0.6 % (0-0.5); Lymphocytes Absolute Auto 2.17 K/mm3 (0.9-3.2); Lymphocytes Percent Auto 27.8 % (18.3-44.2); Mean Corpuscular HGB Conc 33.8 g/dl (32-36); Mean Corpuscular Hemoglobin 31.9 pg (26-34); Mean Corpuscular Volume 94.2 fl (80-100); Monocytes Absolute Auto 0.7 K/mm3 (0.1-0.6); Monocytes Percent Auto 9.1 % (2.6-8.5); Neutrophils Absolute Auto 4.7 K/mm3 (1.3-6.7); Neutrophils Percent Auto 60.5 % (45.5-73.1); Platelet Count Result 276 k/mm3 (150-375); Red Blood Count 4.83 M/mm3 (4.2-5.4); Red Cell Distribution Width 14.5 % (11.5-14.5); White Blood Count 7.8 K/mm3 (4.5-10.0)
[2024-01-06 07:45] LABS: Anion Gap 7 mmol/L (4-12); Blood Urea Nitrogen 13 mg/dL (7-17); Carbon Dioxide 27 mmol/L (22-30); Chloride 99 mmol/L (98-107); Estimated CRCL calculation 47 ml/min; Estimated Glomerular Filt Rate > 60; Glucose 134 mg/dL (65-110); Potassium 3.9 mmol/L (3.4-5.0); Sodium 133 mmol/L (137-145)
--- NOTE | 2024-01-06 10:49 | WPDMODSED ---
Moderate Sedation Note-Pt Data Patient Data Allergies Allergy/AdvReac Type Severity Reaction Status Date / Time niacin Allergy Severe Redness of Verified 01/05/24 16:43 Skin Home Medications Medication Instructions Recorded Confirmed Type calcium 600 mg (as 1 cap PO DAILY 04/12/19 01/05/24 History carbonate)-vitamin D3 5 mcg (200 unit) capsule (Calcium 600 + D(3)) omega 0-qeb-fvm-fish oil 500 mg 1 cap PO DAILY 04/12/19 01/05/24 History (200mg-300mg)-1,000 mg capsule (Ultra [place]-3) rivaroxaban 20 mg tablet (Xarelto) 20 mg PO DAILY #30 tabs 04/13/19 01/05/24 Rx blood-glucose meter (OneTouch #1 ea 10/20/19 11/15/23 Rx Ultra2 Meter) metoprolol tartrate 25 mg tablet 25 mg PO BID 02/10/21 01/05/24 History sotalol 120 mg tablet 180 mg PO BID 02/12/23 01/05/24 History blood sugar diagnostic (Helmi TechnologiesTouch #100 strips 06/21/23 11/15/23 Rx Ultra Test strips) lancets 33 gauge (OneTouch [place] #100 ea 08/05/23 11/15/23 Rx Plus Lancet) levothyroxine 88 mcg tablet 88 mcg PO DAILY #90 tabs 11/15/23 01/05/24 Rx atorvastatin 40 mg tablet 40 mg PO DAILY 01/05/24 01/05/24 History sitagliptin phosphate 50 mg tablet 50 mg PO DAILY 01/05/24 01/05/24 History (Jw) Current Medications: Active Medications Sodium Chloride (Normal Saline Iv) 500 mls @ 100 mls/hr IV CONT .Q5H JOEL Sodium Chloride (Normal Saline Iv) 1,000 mls @ 125 mls/hr IV CONT .Q8H ONE Stop: 01/06/24 18:45 Sedation/Anesthesia: No previous sedation/anesthesia problems (including family history). 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 On Xarelto Hyperlipidemia Hypersomnolence Hyponatremia Hypothyroidism (acquired) Low hemoglobin and low hematocrit Microscopic hematuria Nausea Near syncope On rn long term care drug therapy Orthostatic hypotension Osteoporosis Pedal edema Varicosities of leg Ventricular arrhythmia Vitamin D deficiency Weakness Surgical History Surgical History H/O local excision of skin lesion Nose and lower extremity History of hip surgery rt hip History of total knee arthroplasty lt Hx of cardiac catheterization with 1 stent placed Family History Family History Mother Hypertension Gout Father Cerebrovascular accident Heart attack Diabetes mellitus Sibling Diabetes mellitus COPD (chronic obstructive pulmonary disease) Social History Social History Social History: Lives w/ her . Son is Dr. Rambo Asencio. She has 3 children which include 2 daughters and son. 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 She desires to be a full code Smoking packs per day: 0 Smoking cigarettes per day: 0.0 Years smoked: 0 Smoking pack-years: 0.00 Smoking status: Never smoker Second hand tobacco smoke exposure: No Alcohol intake: current Drinks per week: 4 Alcohol use details: wine Substance use: never Substance use type: does not use Lack of Transportation: No Lack of Food: Never True Current Housing: I Have Housing Concerned About Future Housing: No Difficulty Paying Gas/Electric Bills: No Difficulty Paying for Meds: No Currently Unemployed: No Education: Master's Degree or Higher Difficulty w/ Childcare or
--- NOTE | 2024-01-06 10:50 | WPDCARDPROC ---
Cardiac Cath Procedure Note Date of procedure:: 01/06/24 Performing physician:: CATHETERIZATION LABORATORY REPORT Procedure Date: 01/06/2024 Referring Physician: Dr. Ovalle Anesthesia: 2mg Versed and 100mcg Fentanyl were ordered and given in my presence at 0859, procedure ended at 0936. Supervision of nurse, Linda Archibald, monitored moderate sedation with 2mg Versed and 100mcg Fentanyl was provided for 37 minutes. Pre-op Diagnosis: Angina Post-op Diagnosis: Angina Procedure(s): Left heart catheterization with coronary angiography iFR Access Site: Right radial artery. TR band used for hemostasis Brief History and Clinical Indications: 88 yo woman with PCI to LAD returns with symptoms similar to when she received her stent on two anti-anginals here to define coronary anatomy. All risks, benefits and alternatives to left heart catheterization with or without percutaneous coronary intervention was discussed at length with the patient. Risk of complications including but not limited to bleeding, infection, arrhythmia, stroke, worsening kidney function, blood loss, groin hematoma, limb loss, emergency coronary artery bypass grafting, and even were discussed with the patient and all questions were answered. The patient understood and wished to proceed. Time out called, patient name, date of , medical record number, allergies, procedure performed, identify Community Relations Assistant, patient and staff member concurred with accurate data, procedure carried on. Findings: LEFT HEART CATHETERIZATION FINDINGS: 1. Left main: The left main coronary artery is widely patent without any significant obstructive disease. 2. Left anterior descending: There is a dual LAD system. The first LAD has mild stenosis of 20-30% diffusely and provides a septal branch. The second LAD has 50% ISR. This was interrogated with pressure wire and subsequent iFR 0.93 3. Left circumflex: The left circumflex artery and the main marginal branches have mild luminal irregularities without any significant obstructive angiographic disease. 4. Right coronary artery: The RCA is normal. The RCA is the dominant vessel. 5. Left ventricle: A. End-diastolic pressure 23 mmHg. B. LV gram deferred. C. No significant gradient across aortic valve on catheter pullback. 6. Opening AO pressure 121/60 (84) and closing AO pressure 128/57 (85) Description of Procedure: Informed consent signed and placed in the chart. Patient transferred to manager cath lab room. Prepped and draped in usual sterile fashion. 2% lidocaine injected subcutaneously in right wrist area. 22-gauge venipuncture catheter used to access the right radial artery with the Seldinger technique. 6-FR slender sheath placed in right radial artery. Nitroglycerin 200mcg, Verapamil 2.5mg, and Heparin 5000U was given intraarterial through the sheath. J wire advanced under fluoroscopy 5Fr Katt diagnostic catheter engaged Left Main Coronary Artery. 5Fr TIG diagnostic catheter engaged Right Coronary Artery Multiple orthogonal angiogram obtained and reviewed 5Fr TIG diagnostic catheter crossed aortic valve to obtain LVEDP, LV angiogram deferred. At this time a moderate LAD lesion was found and decision was made to interrogate this lesion with a pressure wire. The CLS 3.5 guide catheter was used to engage the left main coronary artery. A 0.014 OmniWire was placed in the distal left main and normalized. Once normalize the wire was negotiated down the LAD with the moderate lesion. IFR was measured to be 0.93 which is not hemodynamically significant. The OmniWire was pulled back into the distal left main coronary artery and no drift was noted. At this time the OmniWire was withdrawn and the guide catheter was also withdrawn under fluoroscopy. Hemostasis was achieved by application of TR band. Assessment: CAD iFR of moderate LAD lesion was 0.93, which is not hemodynamically significant Post Operative Condition: Stable No
--- NOTE | 2024-01-06 11:03 | WPDHPUPDATE1 ---
History and Physical Update Update Date/Time: 01/06/24 11:03 History and Physical has been reviewed, including an updated exam of the patient. There are NO changes in the patient's condition. Risks, benefits, and alternatives have been discussed and questions answered. Patient agrees to proceed with procedure.
== END | disposition home or self-care (01) ==
PROVIDERS: PCP Internal Medicine; Visit Provider Internal Medicine
PROC: 4A023N7 Measurement of Cardiac Sampling and Pressure, Left Heart, Percutaneous Approach (ICD-10-PCS; CPT 93452; principal; 2024-01-06 08:30)
PROC: 4A033BC Measurement of Arterial Pressure, Coronary, Percutaneous Approach (ICD-10-PCS; CPT 93571; 2024-01-06 08:30)
DX: I25.10 Atherosclerotic heart disease of native coronary artery without angina pectoris (principal); I48.0 Paroxysmal atrial fibrillation; I47.29 Other ventricular tachycardia; I10 Essential (primary) hypertension; E03.9 Hypothyroidism, unspecified; E11.69 Type 2 diabetes mellitus with other specified complication; E78.5 Hyperlipidemia, unspecified; M81.0 Age-related osteoporosis without current pathological fracture; E55.9 Vitamin D deficiency, unspecified; F41.9 Anxiety disorder, unspecified; E87.1 Hypo-osmolality and hyponatremia; Z79.01 Long term (current) use of anticoagulants; Z98.890 Other specified postprocedural states; Z98.61 Coronary angioplasty status; Z86.718 Personal history of other venous thrombosis and embolism; Z85.828 Personal history of other malignant neoplasm of skin; Z82.49 Family history of ischemic heart disease and other diseases of the circulatory system
CPT/HCPCS: 36415; 80048; 85025; 93458; 93571; C1769; C1887; C1894; J1644; J2003; J2250; J2305; J3010; J7040

== ENCOUNTER 2024-03-16 07:33 | Outpatient (CLI) | payer MEDICARE, SELFPAY ==
[2024-03-16 08:09] LABS: Basophils Absolute Auto 0.1 K/mm3 (0.0-0.1); Basophils Percent Auto 0.8 % (0.2-1.2); Eosinophils Absolute Auto 0.1 K/mm3 (0-0.3); Eosinophils Percent Auto 1.1 % (0-4.4); Hematocrit 43.7 % (37.0-47.0); Hemoglobin 14.5 g/dL (12.0-15.0); Immature Granulocyte Absolute 0.03 K/mm3 (0.00-0.031); Immature Granulocyte Percent A 0.4 % (0-0.5); Lymphocytes Absolute Auto 2.75 K/mm3 (0.9-3.2); Lymphocytes Percent Auto 38.2 % (18.3-44.2); Mean Corpuscular HGB Conc 33.2 g/dl (32-36); Mean Corpuscular Hemoglobin 31.7 pg (26-34); Mean Corpuscular Volume 95.4 fl (80-100); Mean Platelet Volume 10.5 fl (7.4-10.4); Monocytes Absolute Auto 0.8 K/mm3 (0.1-0.6); Monocytes Percent Auto 10.6 % (2.6-8.5); Neutrophils Absolute Auto 3.5 K/mm3 (1.3-6.7); Neutrophils Percent Auto 48.9 % (45.5-73.1); Platelet Count Result 292 k/mm3 (150-375); Red Blood Count 4.58 M/mm3 (4.2-5.4); Red Cell Distribution Width 14.6 % (11.5-14.5); White Blood Count 7.2 K/mm3 (4.5-10.0)
[2024-03-16 08:19] LABS: Alanine Aminotransferase 17 U/L (6-35); Albumin Level 4.1 g/dL (3.5-5.1); Alkaline Phosphatase 80 U/L (38-126); Anion Gap 3 mmol/L (4-12); Aspartate Amino Transferase 28 U/L (14-36); Bilirubin,Total 0.8 mg/dL (0.2-1.3); Blood Urea Nitrogen 15 mg/dL (7-17); Calcium 9.3 mg/dL (8.4-10.2); Carbon Dioxide 31 mmol/L (22-30); Chloride 103 mmol/L (98-107); Cholesterol 153 mg/dL (0-200); Estimated Glomerular Filt Rate > 60; Glucose 121 mg/dL (65-110); HDL Direct 69 mg/dL; Potassium 4.3 mmol/L (3.4-5.0); Sodium 137 mmol/L (137-145); Triglycerides 108 mg/dL (<150)
[2024-03-16 08:31] LABS: LDL Cholesterol Direct 52 mg/dL
[2024-03-16 08:32] LABS: Add Urine Microscopic? YES; Appearance Urine Clear (Clear); Bacteria Urine None Seen /hpf; Bilirubin Urine Negative (Negative); Blood Urine 1+ (Negative); Color Urine Yellow (Yellow); Glucose Urine UA Negative (Negative); Ketones Urine Negative (Negative); Leukocyte Esterase Ur 1+ LEU/UL (Negative); Need Manual Microscopic Reviewed; Nitrate Urine Negative (Negative); Non Pathogenic Casts 0-2; Protein Urine Trace mg/dL (Negative); Specific Grav Ur 1.015 (1.001-1.035); Squamous Epithelial Cell Urine Occasional /hpf (Few); Urobilinogen Urine 0.2 mg/dL (<2.0); WBC Urine 0-5 /hpf (0-3)
[2024-03-16 09:39] LABS: Hemoglobin A1C 6.1 % (<5.7)
[2024-03-16 09:40] LABS: Creatinine Urine 131.9 mg/dL
[2024-03-16 09:44] LABS: MALB Creatinine Ratio 33.3 mg/g (0-30); Microalbumin Urine Random 43.9 mg/L (0-16.7)
[2024-03-16 09:54] LABS: Vitamin D 25 Hydroxy 29.5 ng/mL
== END 2024-03-16 07:34 | disposition home or self-care (01) ==
PROVIDERS: PCP Internal Medicine; Visit Provider Internal Medicine
DX: E78.5 Hyperlipidemia, unspecified (principal); I10 Essential (primary) hypertension; E11.9 Type 2 diabetes mellitus without complications; E55.9 Vitamin D deficiency, unspecified; Z79.899 Other long term (current) drug therapy
CPT/HCPCS: 36415; 80053; 80061; 81001; 82043; 82306; 83036; 85025; 87086

== ENCOUNTER 2024-06-20 15:12 | Outpatient (CLI) | payer MEDICARE, SELFPAY ==
[2024-06-20 15:45] LABS: Basophils Absolute Auto 0.1 K/mm3 (0.0-0.1); Basophils Percent Auto 0.7 % (0.2-1.2); Eosinophils Absolute Auto 0.1 K/mm3 (0-0.3); Eosinophils Percent Auto 0.6 % (0-4.4); Hematocrit 44.7 % (37.0-47.0); Immature Granulocyte Absolute 0.04 K/mm3 (0.00-0.031); Immature Granulocyte Percent A 0.5 % (0-0.5); Lymphocytes Percent Auto 32.7 % (18.3-44.2); Mean Corpuscular HGB Conc 33.6 g/dl (32-36); Mean Corpuscular Hemoglobin 30.9 pg (26-34); Mean Corpuscular Volume 92.2 fl (80-100); Mean Platelet Volume 10.4 fl (7.4-10.4); Monocytes Absolute Auto 0.8 K/mm3 (0.1-0.6); Monocytes Percent Auto 8.9 % (2.6-8.5); Neutrophils Absolute Auto 4.9 K/mm3 (1.3-6.7); Neutrophils Percent Auto 56.6 % (45.5-73.1); Platelet Count Result 341 k/mm3 (150-375); Red Blood Count 4.85 M/mm3 (4.2-5.4); Red Cell Distribution Width 14.4 % (11.5-14.5); White Blood Count 8.6 K/mm3 (4.5-10.0)
[2024-06-20 15:59] LABS: Anion Gap 8 mmol/L (4-12); Blood Urea Nitrogen 17 mg/dL (7-17); Calcium 9.5 mg/dL (8.4-10.2); Carbon Dioxide 26 mmol/L (22-30); Chloride 100 mmol/L (98-107); Estimated Glomerular Filt Rate 59; Glucose 131 mg/dL (65-110); Magnesium 1.9 mg/dL (1.6-2.3); Potassium 4.3 mmol/L (3.4-5.0); Sodium 134 mmol/L (137-145)
--- OUTSIDE RECORDS SUMMARY | 2024-06-20 17:08 | XMS_ITS | Clinical Summary ---
Author Organization [facility] [address] Address [address] [place] [address] Care Team Providers Care Rn Travel Name Role Phone Harjeet Bashir MD Primary Care Provider Allergies Active Allergy Reactions Criticality Noted Date Comments Niacin Redness,Rash Medium Red Blotches Medications calcium citrate-vitamin D3 (CITRACAL WITH D) 315 mg- 250 unit per tablet Take 1 tablet by mouth daily Active atorvastatin (LIPITOR) 40 mg tablet Take 1 tablet (40 mg total) by mouth daily 9 Active nitroglycerin (NITROSTAT) 0.4 mg SL tablet 0 Active omega 4-jrt-dyt-fish oil 500-1,000 mg capsule Take 1 capsule by mouth daily Active SITagliptin (JANUVIA) 50 mg tabletIndicatio ns:type 2 diabetes mellitus Take 1 tablet (50 mg total) by mouth daily 30 tablet 11 0 Active levothyroxine (SYNTHROID) 88 mcg tablet Take 1 tablet (88 mcg total) 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 before 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 3 Active sotaloL (BETAPACE) 120 mg tabletIndicatio ns:PAF (paroxysmal atrial fibrillation) (HCC) Take 1.5 tablets (180 mg total) by mouth 2 (two) times a day 270 tablet 3 4 Active metoprolol tartrate (LOPRESSOR) 25 mg immediate release tabletIndicatio ns:Coronary artery disease involving [place] coronary artery of [place] heart without angina pectoris TAKE 1 AND 1/2 TABLETS BY MOUTH IN THE MORNING AND 1 TABLET IN THE EVENING 225 tablet 3 4 Active Xarelto 20 mg tabletIndicatio ns:PAF (paroxysmal atrial fibrillation) (HCC) TAKE 1 TABLET BY MOUTH DAILY 90 tablet 3 4 Active Active Problems Problem Noted Date Diagnosed Date Abnormal ECG 12/31/2023 Hypotension due to drugs 03/22/2023 Labile hypertension 03/22/2023 Chest discomfort 05/13/2022 Hyperlipidemia associated with type 2 diabetes m ellitus 04/28/2021 Thyroid disease 10/10/2019 Near syncope 07/19/2019 Essential hypertension 07/19/2019 Other fatigue 06/06/2019 Coronary artery disease invo lving [place] coronary artery of [place] heart 04/25/2019 S/P drug eluting coronary stent placement 2019 Uncomplicated type 2 diabetes mellitus 0 Chronic anticoagulation 10/07/2018 PAF (paroxysmal atrial fibrillation) 04/21/2018 PVC's (premature ventricular contractions) 02/02 Medication monitoring encounter 03/08/2017 Paroxysmal ventricular tachycardia 01/07/2015 Overview (07/11/2016): Paroxysmal ventricular tachycardia Pure hypercholesterolemia 10/24/2012 Overview (07/09/2016): PURE HYPERCHOLESTEROLEM Resolved Problems Problem Noted Date Diagnosed Date Resolved Date Postural dizziness with presyncope 07/19/2019 07/19/2019 Benign essential HTN 06/06/2019 021 Elevated blood pressure reading 04/25/2019 04/17/2020 Cardiac ischemia 04/11/2019 06/06/2019 QT prolongation 04/11/2019 04/17/2020 Hypercholesterolemia 03/04/2016 018 Overview (07/11/2016): Hypercholesteremia Drug therapy finding 10/24/2012 018 Overview (07/09/2016): THERAPEUTIC DRUG MONITOR Encounters Date Type Department Care Team Description 06/20/2024 3:00 PM CDT Ancillary Procedure [facility] Card[facility] [address] [place] [address] Atrial fibrillation, unspecified type (HCC); Dizziness and giddiness from Last 3 Months Surgical History Surgery Date Site/Laterality Comments OTHER SURGICAL HISTORY D & C ORIF FEMUR FRACTURE 04/05/2015 - 04/04/2016 N/A TOTAL KNEE ARTHROPLASTY 04/05/2018 - 04/04/2019 Left Medical History Medical History Date Comments Hx Other Medical Skin Cancer X2 Hypothyroidism Hypothyroidism DVT (deep venous thrombosis) ([facility]) 2015 PAF (paroxysmal atrial fibrillation) ([facility]) 04/24 18 Ventricular tachyarrhythmia ([facility]) 1999 PVCs and nonsustained VT Hyperlipidemia Pre-diabetes Coronary artery disease 04/2019 mid LAD stent Family History Medical History Relation Name Comments Heart attack Father 2 Myocardial Infa rction; Other Father 2 IN inhis early 50's, 2-3 IN's of CVA; Other Mother 2 HTN, of ol d age; Cause of : HTN, of old age Relation Name Status Comments Father 1 Alive Father 2 Mother 1 (Age 90) Mother 2 Social History Tobacco Use Types Packs/Day Years Used Date Smoking Tobacco: Never Smokeless Tobacco: Never Tobacco Cessation:Counseling Given: Not Answered Alcohol Use Standard Drinks/Week Comments Yes 0 (1 standard drink = 0.6 oz pur e alcohol) Comments Unknown Sex and Gender Information Value Date Recorded Sex Assigned at Not on file Legal Sex 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 Gender Identity Not on file Sexual Orientation Not on file Obstetrics History Last Filed Vital Signs Vital Sign Reading Time Taken Comments Blood Pressure 134/80 02/29/2024 11:03 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 Pulse 58 02/29/2024 11:03 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 Temperature - - Respiratory Rate 16 02/02/2018 3:33 PM CDT Oxygen Saturation 97% 02/29/2024 11:03 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 Inhaled Oxygen Concentration - - Weight 75.3 kg (166 lb) 02/29/2024 11:03 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 Height 160 cm (5' 3 ) 02/29/2024 11:03 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 Body Mass Index 29.41 02/29/2024 11:03 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 Plan of Treatment Health Maintenance Due Date Last Done Comments Albumin Creatinine Ratio, Urine 1935 Depression Screening 1935 Fall Risk Assessment 1935 Hemoglobin A1C 1935 eGFR 1935 Dilated Eye Exam 1935 Foot Exam 1935 DTaP/Tdap/Td Vaccine (1 - Tdap) 12/05/1946 Hepatitis B Screening 12/05/1953 Pneumococcal vaccine 65+ (1 of 2 - PCV) 12/05/1954 Zoster Vaccine (1 of 2) 12/05/1985 Well Visit 65+ 12/05/2000 Influenza Vaccine (#1) 2023 8, 12/11/2013, 12/23/2012 Lipid Panel 11/09/2024 11/10/2023, 01/03, 03/13/2020, Additional history exists Procedures Procedure Name Priority Date/Time Associated Diagnosis Comments LIPID PANEL Routine 11/10/2023 from Last 3 Months or Most Recently Relevant to Health Maintenance Results * Lipid panel (11/10/2023) SCRIBED Cholesterol, Total 152 <200 EXTERNAL LAB SCRIBED HDL 74 >40 EXTERNAL LAB SCRIBED LDL 49 <100 EXTERNAL LAB SCRIBED Triglycerides 98 <150 EXTERNAL LAB Blood 11/10/2023 us Historical Provider LAB BLOOD ORDERABLES Debora shields Result EXTERNAL LAB from Last 3 Months or Most Recently Relevant to Health Maintenance Insurance T MEDICARE AETNA MEDICARE Care Teams Rn Travel Relationship Specialty Start Date End Date Harjeet Bashir MD [address]INE [place], [place] [id number] PCP - General 01/07/15
--- OUTSIDE RECORDS SUMMARY | 2024-06-20 17:08 | XMS_ITS | Referral Summary ---
Author Organization [facility] [address] [facility] [address] Address [address] [place] [address] Care Team Providers Care Skin Care Instructor Name Role Phone Harjeet Bashir MD Primary Care Provider [phone] Encounters Date Type Department Care Team Description 06/20/2024 3:00 PM CDT Ancillary Procedure [facility] Cardiology [address] [place] [address] Atrial fibrillation, unspecified type (HCC); Dizziness and giddiness from Last 3 Months Allergies Active Allergy Reactions Criticality Noted Date Comments Niacin Redness,Rash Medium Red Blotches Medications calcium citrate-vitamin D3 (CITRACAL WITH D) 315 mg- 250 unit per tablet Take 1 tablet by mouth daily Active atorvastatin (LIPITOR) 40 mg tablet Take 1 tablet (40 mg total) by mouth daily 9 Active nitroglycerin (NITROSTAT) 0.4 mg SL tablet 0 Active omega 4-rlh-ied-fish oil 500-1,000 mg capsule Take 1 capsule by mouth daily Active SITagliptin (JANUVIA) 50 mg tabletIndicatio ns:type 2 diabetes mellitus Take 1 tablet (50 mg total) by mouth daily 30 tablet 11 0 Active levothyroxine (SYNTHROID) 88 mcg tablet Take 1 tablet (88 mcg total) 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 before 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 3 Active sotaloL (BETAPACE) 120 mg tabletIndicatio ns:PAF (paroxysmal atrial fibrillation) (HCC) Take 1.5 tablets (180 mg total) by mouth 2 (two) times a day 270 tablet 3 4 Active metoprolol tartrate (LOPRESSOR) 25 mg immediate release tabletIndicatio ns:Coronary artery disease involving [place] coronary artery of [place] heart without angina pectoris TAKE 1 AND [...] fatigue 06/06/2019 Coronary artery disease invo lving [place] coronary artery of [place] heart 04/25/2019 S/P drug eluting coronary stent [...] 10/24/2012 018 Overview (07/09/2016): THERAPEUTIC DRUG MONITOR Social History Tobacco Use Types Packs/Day Years Used Date Smoking Tobacco: Never Smokeless Tobacco: Never Tobacco Cessation:Counseling Given: Not Answered Alcohol Use Standard Drinks/Week Comments Yes 0 (1 standard drink = 0.6 oz pur e alcohol) Comments Unknown Sex and Gender Information Value Date Recorded Sex Assigned at Not on file 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 Gender Identity Not on file Sexual Orientation Not on file Last Filed Vital Signs Vital Sign Reading Time Taken Comments Blood Pressure 134/80 02/29/2024 11:03 AM ART GLASS SETTER Pulse 58 02/29/2024 11:03 AM ART GLASS SETTER Temperature - - Respiratory Rate 16 02/02/2018 3:33 PM CDT Oxygen Saturation 97% 02/29/2024 11:03 AM ART GLASS SETTER Inhaled Oxygen Concentration - - Weight 75.3 kg (166 lb) 02/29/2024 11:03 AM ART GLASS SETTER Height 160 cm (5' 3 ) 02/29/2024 11:03 AM ART GLASS SETTER Body Mass Index 29.41 02/29/2024 11:03 AM ART GLASS SETTER Plan of Treatment Not on file Procedures Procedure Name Priority Date/Time Associated Diagnosis [...] Most Recently Relevant to Health Maintenance Insurance AETNA MEDICARE T MEDICARE Care Teams Skin Care Instructor Relationship Specialty Start Date End Date Harjeet Bashir MD [address] [place] [address] PCP - General 01/07/15
--- OUTSIDE RECORDS SUMMARY | 2024-06-20 17:08 | XMS_ITS | Encounter Summary ---
Author Organization [facility] Address [address] [place] [address] Care Team Providers Care Senior Marketing Data Analyst Name Role Phone Harjeet Bashir MD Primary Care Provider [phone] Reason for Visit * Cardiology (Routine) - Closed Specialty Diagnoses / Procedures Referred By Contac t Referred To Contact Diagnoses Atrial fibrillation, unspecified type (HCC) Dizziness and giddiness Procedures Extended/Usp Holter Patch (>48 hours up to 7 days) Harjeet Bashir MD [address] [facility] [address] [place] [address] Phone: tel: fax: [facility] Referral ID Status Reason Start Date Expiration Date Visits Re quested Visits Authorized [id number] Closed 06/20/2024 07/20/2025 1 1 Encounter Details Date Type Department Care Team (Latest Contact Info) Description 06/20/2024 3:00 PM CDT Ancillary Procedure [facility] Cardiology [address] [facility] [address] [place] [address] Atrial fibrillation, unspecified type (HCC); Dizziness and giddiness Social History Tobacco Use Types Packs/Day Years Used Date Smoking Tobacco: Never Smokeless Tobacco: Never Alcohol Use Standard Drinks/Week Comments Yes 0 (1 standard drink = 0.6 oz pur e alcohol) Comments Unknown Sex and Gender Information Value Date Recorded Sex Assigned at Not on file 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 Gender Identity Not on file Sexual Orientation Not on file documented as of this encounter Plan of Treatment Pending Results Name Type Priority Associated Diagnoses Date /Time Extended/Usp Holter Patch (>48 hours up to 7 days) Cardiac Services Routine Atrial fibrillation, unspecified type (HCC) Dizziness and giddiness 06/20/2024 2:55 PM CDT documented as of this encounter Visit Diagnoses Diagnosis Atrial fibrillation, unspecified type (HCC) Dizziness and giddiness documented in this encounter Care Teams Senior Marketing Data Analyst Relationship Specialty Start Date End Date Harjeet Bashir MD [address] [facility] [address] [facility] [address] [place], [place] [id number] PCP - General 01/07/15 documented as of this encounter
== END 2024-06-20 15:13 | disposition home or self-care (01) ==
LOC: ANHLAB 15:13
PROVIDERS: PCP Internal Medicine; Visit Provider Internal Medicine
DX: I10 Essential (primary) hypertension (principal)
CPT/HCPCS: 36415; 80048; 83735; 85025

== ENCOUNTER 2024-07-26 07:00 | Outpatient (CLI) | payer MEDICARE, SELFPAY ==
--- OUTSIDE RECORDS SUMMARY | 2024-07-26 07:03 | XMS_ITS | Clinical Summary ---
Author Organization [facility] [address] Address [address] [place] [address] Care Team Providers Care Center Lead Consultant Name Role Phone Harjeet Bashir MD Primary Care Provider [phone] Allergies Active Allergy Reactions Criticality Noted Date Comments Niacin Redness,Rash Medium Red Blotches Medications calcium citrate-vitamin D3 (CITRACAL WITH D) 315 mg- 250 unit per tablet Take 1 tablet by mouth daily Active atorvastatin (LIPITOR) 40 mg tablet Take 1 tablet (40 mg total) by mouth daily 9 Active nitroglycerin (NITROSTAT) 0.4 mg SL tablet 0 Active omega 4-mkh-jrq-fish oil 500-1,000 mg capsule Take 1 capsule by mouth daily Active SITagliptin (JANUVIA) 50 mg tabletIndicatio ns:type 2 diabetes mellitus Take 1 tablet (50 mg total) by mouth daily 30 tablet 11 0 Active levothyroxine (SYNTHROID) 88 mcg tablet Take 1 tablet (88 mcg total) by mouth customer contact 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 associate before breakfast 3 Active metoprolol tartrate (LOPRESSOR) 25 mg immediate release tabletIndicatio ns: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 TAKE 1 AND 1/2 TABLETS BY MOUTH IN THE MORNING AND 1 TABLET IN THE EVENING 225 tablet 3 4 Active Xarelto 20 mg tabletIndicatio ns:PAF (paroxysmal atrial fibrillation) (HCC) TAKE 1 TABLET BY MOUTH DAILY 90 tablet 3 4 Active lisinopriL (PRINIVIL,ZESTR IL) 5 mg tablet Take 1 tablet (5 mg total) by mouth 2 (two) times a day 5 Active sotaloL (BETAPACE) 120 mg tabletIndicatio ns:PAF (paroxysmal atrial fibrillation) (HCC) Take 1.5 tablets (180 mg total) by mouth 2 (two) times a day 270 tablet 3 5 Active sotaloL (BETAPACE) 120 mg tabletIndicatio ns:PAF (paroxysmal atrial fibrillation) (HCC) Take 1.5 tablets (180 mg total) by mouth 2 (two) times a day 270 tablet 3 4 07/04/19 25 Discontinu ed(Reorder ) Active Problems Problem Noted Date Diagnosed Date Abnormal ECG 12/31/2023 Hypotension due to drugs 03/22/2023 Labile hypertension 03/22/2023 Chest discomfort 05/13/2022 Hyperlipidemia associated with type 2 diabetes m ellitus 04/28/2021 Thyroid disease 10/10/2019 Near syncope 07/19/2019 Essential hypertension 07/19/2019 Other fatigue 06/06/2019 Coronary artery disease invo lving habematolel coronary artery of habematolel heart 04/25/2019 S/P drug eluting coronary stent [...] Encounters Date Type Department Care Team Description 06/29/2024 10:30 AM CDT Office Visit [facility] Medical [facility] Cardiology [address] [place] [address] Bertha Whatley NP PAF (paroxysmal atrial fibrillation) ([facility]) (Primary Dx); Medication monitoring encounter; Chronic anticoagulation; 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; Labile hypertension 06/20/2024 3:00 PM CDT Ancillary Procedure [facility] Cardiology [address] [place] [address] Atrial fibrillation, unspecified type ([facility]); Dizziness and giddiness from Last 3 Months Surgical History Surgery Date Site/Laterality Comments OTHER SURGICAL HISTORY D & C ORIF FEMUR FRACTURE 04/05/2015 - 04/04/2016 N/A TOTAL KNEE ARTHROPLASTY 04/05/2018 - 04/04/2019 Left Medical History Medical History Date Comments Hx Other Medical Skin Cancer X2 Hypothyroidism Hypothyroidism DVT (deep venous thrombosis) ([facility]) 2015 PAF (paroxysmal atrial fibrillation) ([facility]) 04/24 18 Ventricular tachyarrhythmia ([facility]) 1999 PVCs and nonsustained VT Hyperlipidemia Pre-diabetes Coronary artery disease 04/2019 mid LAD stent Family History Medical History Relation Name Comments Heart attack Father 2 Myocardial Infa rction; Other Father 2 [place] inhis early 50's, 2-3 [place]'s of CVA; Other Mother 2 HTN, of [...] on file 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 Gender Identity Not on file Sexual Orientation Not on file Obstetrics History Last Filed Vital Signs Vital Sign Reading Time Taken Comments Blood Pressure 122/68 06/29/2024 11:04 AM CDT Pulse 60 06/29/2024 11:04 AM CDT Temperature - - Respiratory Rate 16 02/02/2018 3:33 PM CDT Oxygen Saturation 95% 06/29/2024 10:31 AM CDT Inhaled Oxygen Concentration - - Weight 74.8 kg (165 lb) 06/29/2024 10:31 AM CDT Height 160 cm (5' 3 ) 06/29/2024 10:31 AM CDT Body Mass Index 29.23 06/29/2024 10:31 AM CDT Plan of Treatment Health Maintenance Due Date Last Done Comments Albumin Creatinine Ratio, Urine 1935 Depression Screening 1935 Fall Risk Assessment 1935 Hemoglobin A1C 1935 eGFR 1935 Dilated Eye Exam 1935 Foot Exam 1935 DTaP/Tdap/Td Vaccine (1 - Tdap) 12/05/1946 Hepatitis B Screening 12/05/1953 Pneumococcal vaccine 65+ (1 of 2 - PCV) 12/05/1954 Zoster Vaccine (1 of 2) 12/05/1985 Well Visit 65+ 12/05/2000 Lipid Panel 11/09/2024 11/10/2023, 01/03, 03/13/2020, Additional history exists Influenza Vaccine (Season Ended) 2024 12/13/2017, 12/11/2013, 12/23/2012 Procedures Procedure Name Priority Date/Time Associated Diagnosis Comments ELECTROCARDIOGRAM REPORT Routine 025 3:49 PM CDT PAF (paroxysmal atrial fibrillation) (HCC) EXTENDED/CUSTODIAL HOLTER PATCH (>48 HOURS UP TO 7 DAYS) Routine 06/20/2024 2:55 PM CDT Atrial fibrillation, unspecified type (HCC) Dizziness and giddiness LIPID PANEL Routine 11/10/2023 from Last 3 Months or Most Recently Relevant to Health Maintenance Results * Electrocardiogram Report (06/29/2024 3:49 PM CDT) Bertha Whatley NP ECG ORDERABLES Final Res ult * Extended/Prison Holter Patch (>48 hours up to 7 days) (06/20/2024 2:55 PM CDT) Anatomical Region Laterality Modality Electrocardiogra phy Narrative 06/29/2024 4:31 PM CDT Images from the original result were not included. AMBULATORY SENIOR PHP SOFTWARE DEVELOPER REPORT Patient Name: Teresita Asencio Date of : 1935 Requesting Physician: Harjeet Bashir M.D. Date of Interpretation: 06/29/24 Type of Monitor: 72 Hour Holter Monitor Date of the Study / Enrollment Period: 06/20/2024 to 06/23/2024 Indication: Atrial fibrillation; dizziness/giddiness Quality of the Study: Average. Total analysis time of 2 days, 23 hours, and 42 minutes. Interpretation: Predominant rhythm is sinus bradycardia. The average heart rate was 56 beats per minute. The minimum heart rate was 38 beats per minute (which occurred 06/23/2024 at 06:11AM; possibly sleeping hours). The maximum heart rate was 85 beats per minute. No evidence of atrial fibrillation, SVT, pauses, heart block, or ventricular tachycardia. The PAC burden is <1%. The PVC burden is <1%. Patient reported no symptoms during the monitoring period. Conclusions: Sinus rhythm with an average heart rate of 56 beats per minute. No significant arrhythmias. No patient reported symptoms. Noemy Argueta M.D., [facility] 06/29/24 Procedure Note Noemy Argueta MD - 06/29/2024 Images from the original note were not included. AMBULATORY SENIOR PHP SOFTWARE DEVELOPER REPORT Patient Name: Teresita Asencio Date of : 1935 Requesting Physician: Harjeet Bashir M.D. Date of Interpretation: 06/29/24 Type of Monitor: 72 Hour Holter Monitor Date of the Study / Enrollment Period: 06/20/2024 to 06/23/2024 Indication: Atrial fibrillation; dizziness/giddiness Quality of the Study: Average. Total analysis time of 2 days, 23 hours,and 42 minutes. Interpretation: Predominant rhythm is sinus bradycardia. The average heart rate was 56beats per minute. The minimum heart rate was 38 beats per minute (whichoccurred 06/23/2024 at 06:11AM; possibly sleeping hours). The maximum heartrate was 85 beats per minute. No evidence of atrial fibrillation, SVT, pauses, heart block, orventricular tachycardia. The PAC burden is <1%. The PVC burden is <1%. Patient reported no symptoms during the monitoring period. Conclusions: Sinus rhythm with an average heart rate of 56 beats per minute. No significant arrhythmias. No patient reported symptoms. Noemy Argueta M.D., [facility] 06/29/24 Harjeet Bashir MD [facility] PROCEDURE S Final Result * Lipid panel (11/10/2023) SCRIBED Cholesterol, Total 152 <200 EXTERNAL LAB SCRIBED HDL 74 >40 EXTERNAL LAB SCRIBED LDL 49 <100 EXTERNAL LAB SCRIBED Triglycerides 98 <150 EXTERNAL LAB Blood 11/10/2023 Historical Provider LAB BLOOD ORDERABLES Debora shields Result EXTERNAL LAB from Last 3 Months or Most Recently Relevant to Health Maintenance Insurance T MEDICARE AETNA MEDICARE Care Teams Center Lead Consultant Relationship Specialty Start Date End Date Harjeet Bashir MD [address] INTERNAL MEDICINE [place], [place] [id number] PCP - General 01/07/15
--- OUTSIDE RECORDS SUMMARY | 2024-07-26 07:03 | XMS_ITS | Referral Summary ---
Author Organization [place] [address] [address] [place] [address] [address] [place] [address] Care Team Providers Care Emergency Management System Director Name Role Phone Harjeet Bashir MD Primary Care Provider [phone] Encounters Date Type Department Care Team Description 06/29/2024 10:30 AM CDT Office Visit [facility] Medical [facility] Cardiology [address] [place] [address] [address] [place] [address] Bertha Whatley NP PAF (paroxysmal atrial fibrillation) (HCC) (Primary Dx); Medication monitoring encounter; Chronic anticoagulation; Coronary artery disease involving little traverse coronary artery of little traverse heart without angina pectoris; Labile hypertension 06/20/2024 3:00 PM CDT Ancillary Procedure [facility] Cardiology [address] [place] [address] [address] [place] [address] Atrial fibrillation, unspecified type (HCC); [...] 0.4 mg SL tablet 0 Active omega 9-xik-ycq-fish oil 500-1,000 mg capsule Take 1 capsule by mouth daily Active SITagliptin (JANUVIA) 50 mg tabletIndicatio ns:type 2 diabetes mellitus Take 1 tablet (50 mg total) by mouth daily 30 tablet 11 0 Active levothyroxine (SYNTHROID) 88 mcg tablet Take 1 tablet (88 mcg total) by mouth 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 before 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 3 Active metoprolol tartrate (LOPRESSOR) 25 mg immediate release tabletIndicatio ns:Coronary artery disease involving little traverse coronary artery of little traverse heart without angina pectoris TAKE 1 AND [...] fatigue 06/06/2019 Coronary artery disease invo lving little traverse coronary artery of little traverse heart 04/25/2019 S/P drug eluting coronary stent [...] on file 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 Gender Identity Not on file Sexual Orientation [...] 06/29/2024 10:31 AM CDT Plan of Treatment Not on file Procedures Procedure Name Priority Date/Time Associated Diagnosis Comments ELECTROCARDIOGRAM REPORT Routine 025 3:49 PM CDT PAF (paroxysmal atrial fibrillation) ([facility]) EXTENDED/PENITENTIARY HOLTER PATCH (>48 HOURS UP TO 7 DAYS) Routine 06/20/2024 2:55 PM CDT Atrial fibrillation, unspecified type (HCC) Dizziness and giddiness LIPID PANEL Routine 11/10/2023 from Last 3 Months or Most Recently Relevant to Health Maintenance Results * Electrocardiogram Report (06/29/2024 3:49 PM CDT) Bertharichard Whatley ASIA ECG ORDERABLES Final Res ult * Extended/Retirement Holter Patch (>48 hours up to 7 days) (06/20/2024 2:55 PM CDT) Anatomical Region Laterality Modality Electrocardiogra phy Narrative 06/29/2024 4:31 PM CDT Images from the original result were not included. AMBULATORY DISABILITIES SERVICES OFFICER REPORT Patient Name: Teresita Asencio Date of [...] No patient reported symptoms. Noemy Argueta M.D., [facility] 06/29/24 Procedure Note Noemy Argueta MD - 06/29/2024 Images from the original note were not included. AMBULATORY DISABILITIES SERVICES OFFICER REPORT Patient Name: Teresita Asencio Date of [...] No patient reported symptoms. Noemy Argueta M.D., [facility] 06/29/24 Harjeet Bashir MD [facility] CARDIAC SERVICES [...] Relevant to Health Maintenance Insurance AETNA MEDICARE AET MEDICARE Care Teams Emergency Management System Director Relationship Specialty Start Date End Date Harjeet Bashir MD [address] [facility] [address] [place] [address] PCP - General 01/07/15
[2024-07-26 08:06] LABS: Basophils Absolute Auto 0.1 K/mm3 (0.0-0.1); Basophils Percent Auto 0.9 % (0.2-1.2); Eosinophils Absolute Auto 0.1 K/mm3 (0-0.3); Eosinophils Percent Auto 1.2 % (0-4.4); Hematocrit 42.2 % (37.0-47.0); Hemoglobin 13.8 g/dL (12.0-15.0); Immature Granulocyte Absolute 0.03 K/mm3 (0.00-0.031); Immature Granulocyte Percent A 0.4 % (0-0.5); Lymphocytes Absolute Auto 2.67 K/mm3 (0.9-3.2); Lymphocytes Percent Auto 39.1 % (18.3-44.2); Mean Corpuscular HGB Conc 32.7 g/dl (32-36); Mean Corpuscular Hemoglobin 30.8 pg (26-34); Mean Corpuscular Volume 94.2 fl (80-100); Mean Platelet Volume 10.9 fl (7.4-10.4); Monocytes Absolute Auto 0.6 K/mm3 (0.1-0.6); Monocytes Percent Auto 8.8 % (2.6-8.5); Neutrophils Absolute Auto 3.4 K/mm3 (1.3-6.7); Neutrophils Percent Auto 49.6 % (45.5-73.1); Platelet Count Result 277 k/mm3 (150-375); Red Blood Count 4.48 M/mm3 (4.2-5.4); Red Cell Distribution Width 14.7 % (11.5-14.5); White Blood Count 6.8 K/mm3 (4.5-10.0)
[2024-07-26 08:20] LABS: Alanine Aminotransferase 23 U/L (6-35); Alkaline Phosphatase 80 U/L (38-126); Anion Gap 8 mmol/L (4-12); Aspartate Amino Transferase 31 U/L (14-36); Bilirubin,Total 0.8 mg/dL (0.2-1.3); Blood Urea Nitrogen 16 mg/dL (7-17); Calcium 8.8 mg/dL (8.4-10.2); Carbon Dioxide 25 mmol/L (22-30); Chloride 102 mmol/L (98-107); Cholesterol 145 mg/dL (0-200); Estimated Glomerular Filt Rate > 60; Glucose 116 mg/dL (65-110); HDL Direct 61 mg/dL; Potassium 4.6 mmol/L (3.4-5.0); Sodium 135 mmol/L (137-145); Triglycerides 107 mg/dL (<150)
[2024-07-26 08:31] LABS: LDL Cholesterol Direct 50 mg/dL
[2024-07-26 08:47] LABS: Thyroid Stimulating Hormone 0.977 uIU/mL (0.465-4.680)
[2024-07-26 08:52] LABS: Free T4 Free Thyroxine 1.68 ng/dL (0.78-2.19)
[2024-07-26 10:50] LABS: Hemoglobin A1C 6.2 % (<5.7)
== END 2024-07-26 07:01 | disposition home or self-care (01) ==
PROVIDERS: PCP Internal Medicine; Visit Provider Internal Medicine
DX: E78.2 Mixed hyperlipidemia (principal); E11.9 Type 2 diabetes mellitus without complications; I10 Essential (primary) hypertension; E03.9 Hypothyroidism, unspecified
CPT/HCPCS: 36415; 80053; 80061; 83036; 84439; 84443; 85025

== ENCOUNTER 2024-12-07 07:07 | Outpatient (CLI) | payer MEDICARE, SELFPAY ==
--- OUTSIDE RECORDS SUMMARY | 2024-12-07 07:09 | XMS_ITS | Encounter Summary ---
Author Organization [facility] Healthcare Address [address] [place] [address] Care Team Providers Care It Integration Architect Name Role Phone Harjeet Bashir MD Primary Care Provider [phone] Encounter Details Date Type Department Care Team (Late st Contact Info) Description 01/06/2024 Orders Only [facility] Health Information Management [address] [place] [id number] Scanning, Provider Social History Tobacco Use Types Packs/Day Years Used Date Smoking Tobacco: Never Smokeless Tobacco: Never Alcohol Use Standard Drinks/Week Comments Yes 0 (1 standard drink = 0.6 oz pur e alcohol) Comments Unknown Sex and Gender Information Value Date Recorded Sex Assigned at Not on file 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 Gender Identity Not on file Sexual Orientation Not on file documented as of this encounter Plan of Treatment Not on file documented as of this encounter Procedures Procedure Name Priority Date/Time Associated Diagnosis Comments SCAN - LABS 01/06/2024 CARDIOLOGY DOCUMENT SCAN 01/06/2024 documented in this encounter Results * SCAN - LABS (01/06/2024) us Provider Scanning Final Result * Cardiology Document Scan (01/06/2024) Anatomical Region Laterality Modality Other us Provider Scanning [facility] CARDIAC SERVICES PROCEDURES Final Result documented in this encounter Visit Diagnoses Not on filedocumented in this encounter Care Teams It Integration Architect Relationship Specialty Start Date End Date Harjeet Bashir MD [address] [place] [address] PCP - General 01/07/15 documented as of this encounter
[2024-12-07 08:47] LABS: Alanine Aminotransferase 16 U/L (6-35); Albumin Level 4.0 g/dL (3.5-5.1); Alkaline Phosphatase 86 U/L (38-126); Anion Gap 7 mmol/L (4-12); Aspartate Amino Transferase 35 U/L (14-36); Bilirubin,Total 0.8 mg/dL (0.2-1.3); Blood Urea Nitrogen 14 mg/dL (7-17); Calcium 9.2 mg/dL (8.4-10.2); Carbon Dioxide 26 mmol/L (22-30); Chloride 98 mmol/L (98-107); Cholesterol 148 mg/dL (0-200); Estimated Glomerular Filt Rate > 60; Glucose 115 mg/dL (65-110); HDL Direct 66 mg/dL; Potassium 4.6 mmol/L (3.4-5.0); Sodium 131 mmol/L (137-145); Total Protein 7.0 g/dL (6.3-8.2); Triglycerides 92 mg/dL (<150)
[2024-12-07 09:23] LABS: Thyroid Stimulating Hormone 1.330 uIU/mL (0.465-4.680)
[2024-12-07 09:57] LABS: Hemoglobin A1C 6.2 % (<5.7)
[2024-12-07 10:02] LABS: Free T4 Free Thyroxine 1.66 ng/dL (0.78-2.19)
== END 2024-12-07 07:08 | disposition home or self-care (01) ==
LOC: ANHLAB 07:07
PROVIDERS: PCP Internal Medicine; Visit Provider Internal Medicine
DX: E55.9 Vitamin D deficiency, unspecified (principal); E03.9 Hypothyroidism, unspecified; E78.2 Mixed hyperlipidemia; E11.9 Type 2 diabetes mellitus without complications; I10 Essential (primary) hypertension
CPT/HCPCS: 36415; 80053; 80061; 82306; 83036; 84439; 84443

== ENCOUNTER 2025-03-20 07:30 | Outpatient (CLI) | payer MEDICARE, SELFPAY ==
[2025-03-20 08:20] LABS: Hematocrit 42.4 % (37.0-47.0); Hemoglobin 14.6 g/dL (12.0-15.0); Immature Granulocyte Percent A 0.4 % (0-0.5); Lymphocytes Absolute Auto 2.47 K/mm3 (0.9-3.2); Mean Corpuscular HGB Conc 34.4 g/dl (32-36); Mean Corpuscular Hemoglobin 31.9 pg (26-34); Mean Corpuscular Volume 92.8 fl (80-100); Nucleated Red Blood Cells Absolute Auto 0.000 K/mm3 (0.0-0.012); Nucleated Red Blood Cells Perc 0.0 % (0.0-0.2); Platelet Count Result 309 k/mm3 (150-375); Red Blood Count 4.57 M/mm3 (4.2-5.4); White Blood Count 7.2 K/mm3 (4.5-10.0)
[2025-03-20 08:45] LABS: Alanine Aminotransferase 21 U/L (6-35); Albumin Level 4.1 g/dL (3.5-5.1); Alkaline Phosphatase 83 U/L (38-126); Anion Gap 6 mmol/L (4-12); Aspartate Amino Transferase 41 U/L (14-36); Bilirubin,Total 0.7 mg/dL (0.2-1.3); Blood Urea Nitrogen 13 mg/dL (7-17); Calcium 9.1 mg/dL (8.4-10.2); Carbon Dioxide 24 mmol/L (22-30); Chloride 101 mmol/L (98-107); Cholesterol 147 mg/dL (0-200); Estimated Glomerular Filt Rate > 60; Glucose 118 mg/dL (65-110); HDL Direct 66 mg/dL; Potassium 4.4 mmol/L (3.4-5.0); Sodium 131 mmol/L (137-145); Total Protein 7.3 g/dL (6.3-8.2); Triglycerides 97 mg/dL (<150)
[2025-03-20 09:21] LABS: Thyroid Stimulating Hormone 2.230 uIU/mL (0.465-4.680)
[2025-03-20 09:40] LABS: MALB Creatinine Ratio 39.1 mg/g (0-30)
[2025-03-20 09:48] LABS: Free T4 Free Thyroxine 1.83 ng/dL (0.78-2.19)
[2025-03-20 10:18] LABS: Hemoglobin A1C 6.1 % (<5.7)
== END 2025-03-20 07:31 | disposition home or self-care (01) ==
PROVIDERS: PCP Internal Medicine; Visit Provider Internal Medicine
DX: I10 Essential (primary) hypertension (principal); E11.9 Type 2 diabetes mellitus without complications; E78.2 Mixed hyperlipidemia; E03.9 Hypothyroidism, unspecified; D50.9 Iron deficiency anemia, unspecified; E55.9 Vitamin D deficiency, unspecified; Z79.899 Other long term (current) drug therapy
CPT/HCPCS: 36415; 80053; 80061; 82043; 82306; 83036; 84439; 84443; 85025